=== PATIENT | female | born 1975 | race Caucasian/White ===

== ENCOUNTER 2016-05-26 20:11 | Emergency (ER) | payer OTHER ==
[~2016-05-26] VITALS: Ht 172.7 cm; Wt 110.2 kg
[~2016-05-26 20:11] MED LIST: ALBUTEROL0.09 MG/AC INH; CATAPRES-TTS 10.1 MG PO; CITALOPRAM10 MG PO; COREG25 MG PO; DOXYCYCLINE100 MG PO; HYDROCODONE BIT1 T11 PO; LASIX20 MG PO; MOBIC15 MG PO; MOTRIN800 MG PO; MUCINEX600 MG PO; NAPROSYN500 MG PO; NORETHINDRONE AC5 MG PO; NORFLEX100 MG PO; OXYBUTYNIN CHLOR5 M1 PO; PREDNISONE20 MG PO; SINGULAIR10 M1 PO; TESSALON PERLE200 MG PO; VICODIN ES 7501 TAB PO; VICTOZA; VITAMIN D50000 I3 PO; ZOFRAN4 MG PO; ZYRTEC10 MG PO
[2016-05-26] MEDS ORDERED: COZAAR100 MG PO (20:21)
[2016-05-26] MEDS ORDERED: CLARITIN10 MG PO (20:22)
[2016-05-26] MEDS ORDERED: VITAMIN D22000 UNIT PO (20:24)
[2016-05-26] MEDS ORDERED: FEMARA2.5 MG PO (20:25)
[2016-05-26] MEDS ORDERED: HUMALOG100 UNIT/1 SQ (20:26)
[2016-05-26 20:58] LABS: VENOUS PH 7.397 (7.32-7.43)
[2016-05-26 21:12] LABS: BUN 12 mg/dl (7-24); CARBON DIOXIDE 24 mmol/L (21-32); CHLORIDE 102 mmol/L (98-107); EST GLOM FILT AFRICAN AMERICAN > 60 ml/min; GLUCOSE 151 mg/dL (65-99); POTASSIUM 3.5 mmol/L (3.5-5.1); SODIUM 138 mmol/L (136-145)
[2016-05-26 21:29] LABS: BILIRUBIN NEGATIVE (NEGATIVE); BLOOD 1+ (NEGATIVE); CLARITY CLEAR (CLEAR); COLOR YELLOW (YELLOW); GLUCOSE NEGATIVE (NEGATIVE); KETONE TRACE (NEGATIVE); LEUKO ESTERASE NEGATIVE (NEGATIVE); NITRITE NEGATIVE (NEGATIVE); PH 5.5 (5.0-9.0); PROTEIN NEGATIVE (NEGATIVE); SPECIFIC GRAVITY 1.025 (1.005-1.030); UROBILINOGEN 0.2 E.U./dl (0.2-1.0)
[2016-05-26 21:38] LABS: URINE REFLEX COMMENT YES (NO)
[2016-07-31] MEDS ORDERED: CYCLOBENZAPRINE10 MG PO (10:29)
[2016-07-31] MEDS ORDERED: NAPROSYN500 MG PO (10:29)
== END 2016-05-26 21:55 | disposition home or self-care (01) ==
LOC: ED 20:11
PROVIDERS: Emergency Medicine
DX: E11.65 Type 2 diabetes mellitus with hyperglycemia (principal); Z79.4 Long term (current) use of insulin; Z90.49 Acquired absence of other specified parts of digestive tract; Z88.6 Allergy status to analgesic agent; Z88.8 Allergy status to other drugs, medicaments and biological substances

== ENCOUNTER 2016-08-18 16:11 | Emergency (ER) | payer OTHER ==
[~2016-08-18] VITALS: Wt 108.9 kg
[~2016-08-18 16:11] MED LIST changes: +CLARITIN10 MG PO; +COZAAR100 MG PO; +CYCLOBENZAPRINE10 MG PO; +FEMARA2.5 MG PO; +HUMALOG100 UNIT/1 SQ; +VITAMIN D22000 UNIT PO
[2016-08-18] MEDS ORDERED: METOPROLOL SUCC50 M2 PO (16:14)
[2016-08-18] MEDS ORDERED: MEDROL DOSEPAK4 MG PO (18:25)
[2016-08-18] MEDS ORDERED: ULTRAM50 MG PO (18:25)
== END 2016-08-18 18:29 | disposition home or self-care (01) ==
LOC: ED 16:11
DX: G89.29 Other chronic pain (principal); M54.5 Low back pain; Z90.710 Acquired absence of both cervix and uterus; Z98.890 Other specified postprocedural states; Z79.899 Other long term (current) drug therapy; Z88.5 Allergy status to narcotic agent; Z88.8 Allergy status to other drugs, medicaments and biological substances

== ENCOUNTER → 2016-08-22 | Outpatient (CLI) | payer OTHER ==
[~2016-08-22] MED LIST changes: +MEDROL DOSEPAK4 MG PO; +METOPROLOL SUCC50 M2 PO; +ULTRAM50 MG PO
== END | disposition home or self-care (01) ==
LOC: LAB 12:48
DX: R53.83 Other fatigue (principal)

== ENCOUNTER → 2016-08-24 | Outpatient (CLI) | payer OTHER | END | disposition home or self-care (01) | LOC: MRI 08-16 09:00 | DX: R20.2 Paresthesia of skin (principal) ==

== ENCOUNTER 2016-09-22 21:20 | Emergency (ER) | payer OTHER ==
[2016-09-22] MEDS ORDERED: NEURONTIN300 MG PO (21:35)
[2016-09-22] MEDS ORDERED: CYMBALTA30 MG PO (21:35)
[2016-09-22 22:16] LABS: BASO % 0.1 % (0.0-1.0); HEMATOCRIT 40.5 % (37.0-47.0); HEMOGLOBIN 13.9 g/dl (12.0-16.0); IG # 0.1 10*3/uL (0.0-0.1); LYMPH # 1.6 10*3/uL (1.3-4.4); LYMPH % 10.4 % (27.0-41.0); MEAN CELL VOLUME 87.3 fl (81.0-99.0); MEAN CORPUSCULAR HGB CONC 34.3 g/dl (33.0-37.0); MEAN PLATELET VOLUME 10.2 fl (9.6-12.3); MONO # 0.4 10*3/uL (0.1-1.0); MONO % 2.8 % (3.0-9.0); NEUT # 13.1 10*3/uL (2.3-7.9); PLATELET COUNT AUTOMATED 323 10*3/uL (130-400); RED BLOOD COUNT 4.64 10*6/uL (4.10-5.10); RED CELL DISTRI WIDTH 13.1 % (0-14.5); WHITE BLOOD COUNT 15.2 10*3/uL (4.8-10.8)
[2016-09-22 22:30] LABS: BILIRUBIN NEGATIVE (NEGATIVE); BLOOD TRACE-INTACT (NEGATIVE); CLARITY CLEAR (CLEAR); COLOR YELLOW (YELLOW); GLUCOSE 3+ (NEGATIVE); KETONE NEGATIVE (NEGATIVE); LEUKO ESTERASE NEGATIVE (NEGATIVE); NITRITE NEGATIVE (NEGATIVE); PH 5.5 (5.0-9.0); PROTEIN NEGATIVE (NEGATIVE); SPECIFIC GRAVITY <= 1.005 (1.005-1.030); UROBILINOGEN 0.2 E.U./dl (0.2-1.0)
[2016-09-22 22:32] LABS: ALBUMIN 3.8 gm/dl (3.1-4.5); BILIRUBIN, TOTAL 0.8 mg/dl (0.2-1.0); BUN 10 mg/dl (7-24); CARBON DIOXIDE 22 mmol/L (21-32); CHLORIDE 100 mmol/L (98-107); EST GLOM FILT AFRICAN AMERICAN > 60 ml/min; GLUCOSE 357 mg/dL (65-99); POTASSIUM 4.6 mmol/L (3.5-5.1); SGOT/AST 25 IU/L (3-35); SGPT/ALT 32 U/L (12-78); SODIUM 133 mmol/L (136-145); TOTAL PROTEIN 8.2 gm/dL (6.4-8.2)
[2016-09-22 22:33] LABS: ALKALINE PHOSPHATASE 96 U/L (45-117)
[2016-09-22 22:58] LABS: BACTERIA TRACE; URINE REFLEX COMMENT NO (NO); WBC 0-2 wbc/hpf (0-5)
== END 2016-09-23 00:29 | disposition home or self-care (01) ==
LOC: ED 21:20
PROVIDERS: Nurse Practitioner Family
DX: R73.9 Hyperglycemia, unspecified (principal); Z88.6 Allergy status to analgesic agent; Z88.8 Allergy status to other drugs, medicaments and biological substances; Z79.899 Other long term (current) drug therapy

== ENCOUNTER 2016-12-19 05:59 | Inpatient (IN) | payer OTHER ==
[2016-12-19] VITALS (8 sets, daily range): BP systolic 91–145; BP diastolic 55–87
[~2016-12-19] VITALS: Ht 175 cm; Wt 132.1 kg
--- NOTE | ~2016-12-19 | WRIGHTHP ---
[place], [place] PATIENT HISTORY AND PHYSICAL EXAM [id number] UNIT #: [id number] ROOM: 519 DOCTOR: BRIANDA ARAUZ MD BIRTHDATE: [birth year] DOS: 12/19/2016 HISTORY OF PRESENT ILLNESS: The patient is very well known to us, 41 years old, was awoken this morning with complaints of chest pain, mostly in the left side of the chest radiating to the jaw and neck. She also has some radiation in the left arm. She does not have any shortness of breath, does not have any fever or chills, does not have any abdominal pain, nausea, any emesis. PAST MEDICAL HISTORY: 1. Angiomyxoma of the pelvis for which she follows up with [facility]. 2. Type 2 diabetes mellitus, insulin-dependent. 3. Benign hypertension. 4. Fibromyalgia with chronic pain. 5. Obstructive sleep apnea. 6. Major depression, mild, recurrent. MEDICATIONS: She is on citalopram, Symbolia, La, gabapentin, metoprolol, oxybutynin, Singulair, Spiriva, Lantus and Humalog. SOCIAL HISTORY: Does not smoke, does not use any alcohol. Lives at home with her . PHYSICAL EXAMINATION: GENERAL: The patient is awake and alert and oriented. VITAL SIGNS: Her weight is 270. Blood pressure is 120/70, pulse of 86, respirations 16, afebrile. HEAD AND NECK: Within normal limits. LUNGS: Diminished breath sounds, clear. HEART: Regular. ABDOMEN: Obese, soft, nontender. EXTREMITIES: Without any edema. ASSESSMENT AND PLAN: 1. Precordial chest pain. The patient does have significant risk factors having hypertension and diabetes. The patient will be admitted. Rule out PA protocol will be ordered. Cardiology consultations obtained and the patient to have a stress test tomorrow morning. Lovenox and nitrates will be started. 2. Benign hypertension, controlled. Echocardiogram is ordered. 3. Type 2 diabetes mellitus. Blood sugars to be checked twice daily, ADA diet and coverage has been ordered. [place], [place] PATIENT HISTORY AND PHYSICAL EXAM NAME: ELIUD CHRISTOPHER UNIT #: [id number] ROOM: 519 DOCTOR: BRIANDA ARAUZ MD BIRTHDATE: [birth year] BRIANDA ARAUZ MD CM:HISPHYS:PATIENT HISTORY AND PHYSICAL EXAMINATION 1303 1336 BRIANDA ARAUZ MD 12/19/16 1337 interface
--- NOTE | ~2016-12-19 | PR ---
[place], [place] PROGRESS NOTE NAME: ELIUD CHRISTOPHER [facility] #: [id number] UNIT #: [id number] ROOM: 519 DOCTOR: BRIANDA ARAUZ MD BIRTHDATE: [birth year] DOS: 12/20/2016 SUBJECTIVE: The patient is not having any new complaints. She had a pretty bad headache during the night, possibly from the nitrates and had a pretty large emesis. Toradol and Zofran was given, and this morning, she is not having any more headaches. PHYSICAL EXAMINATION: VITAL SIGNS: Graphic trend shows a pressure of 116/65, pulse of 86, respirations 20, temperature 98.4. LUNGS: Clear. HEART: Regular. ABDOMEN: Obese. EXTREMITIES: Without any edema. LABORATORY DATA: All the 3 troponins that were done came back negative. Blood sugar this morning was 143. ASSESSMENT AND PLAN: 1. Precordial chest pain. The patient had a rule out myocardial infarction protocol, which was negative. Nitrates, Lovenox were given. The nitrates were discontinued because of severe headache. Stress test was performed today, and if that looks good, the patient should be able to go home. 2. Right lower lobe atelectasis noted without any pleural effusion. We will repeat a chest x-ray this morning to make sure this area has expanded. 3. Type 2 diabetes mellitus, insulin-dependent, controlled. BRIANDA ARAUZ MD CM:PNTRANS [id number] BRIANDA ARAUZ MD 12/21/16 0230 interface
--- NOTE | ~2016-12-19 | ST ---
[place], [place] EXERCISE STRESS TEST REPORT [id number] #: [id number] ROOM: [facility] DOCTOR: BRIANDA ARAUZ MD BIRTHDATE: [birth year] DOS: REASON FOR TESTING: Evaluation of chest pain. PROCEDURE: After explaining the procedure and obtaining consent, the patient was subjected to Lexiscan stress test. Resting heart rate was 81 with a blood pressure 124/70. EKG showed sinus with normal axis, nonspecific ST. The patient was injected with 0.4 mg of Lexiscan. During the infusion, the patient did not have any complaints other than a warm feeling. There was no chest pain or shortness of breath or any other EKG changes noted during the infusion. After the infusion was over, she was injected with Cardiolite and stress images were taken. ASSESSMENT AND PLAN: Lexiscan stress test without any ST-T wave changes. Cardiolite images pending. BRIANDA ARAUZ MD CM:STRESS:EXERCISE STRESS TEST REPORT [id number] BRIANDA ARAUZ MD
--- NOTE | ~2016-12-19 | EKG ---
[place], [place] ELECTROCARDIOGRAM REPORT NAME: ELIUD CHRISTOPHER UNIT #: [id number] ROOM: [facility] DOCTOR: SHAMIR DUNLAP MD BIRTHDATE: [birth year] DOS: 12/19/2016 TIME: 6:09:30 Normal sinus rhythm, left axis deviation, nonspecific ST-T changes. SHAMIR DUNLAP MD CM:EKGRPT:ELECTROCARDIOGRAM REPORT [id number] SHAMIR DUNLAP MD
[~2016-12-19 05:59] MED LIST changes: +CYMBALTA30 MG PO; +NEURONTIN300 MG PO
[2016-12-19 06:19] LABS: BASO % 0.3 % (0.0-1.0); EOS # 0.3 10*3/uL (0.0-0.4); EOS % 2.5 % (1.0-4.0); HEMATOCRIT 39.7 % (37.0-47.0); HEMOGLOBIN 13.7 g/dl (12.0-16.0); LYMPH % 38.1 % (27.0-41.0); MEAN CELL VOLUME 86.5 fl (81.0-99.0); MEAN CORPUSCULAR HGB 29.8 pg (27.0-31.0); MEAN CORPUSCULAR HGB CONC 34.5 g/dl (33.0-37.0); MEAN PLATELET VOLUME 9.9 fl (9.6-12.3); MONO # 0.7 10*3/uL (0.1-1.0); NEUT # 5.4 10*3/uL (2.3-7.9); NEUT % 51.8 % (47.0-73.0); PLATELET COUNT AUTOMATED 231 10*3/uL (130-400); RED BLOOD COUNT 4.59 10*6/uL (4.10-5.10); RED CELL DISTRI WIDTH 12.2 % (0-14.5); WHITE BLOOD COUNT 10.5 10*3/uL (4.8-10.8)
[2016-12-19 06:34] LABS: PROTHROMBIN TIME 10.7 SECONDS (9.0-12.4)
[2016-12-19 06:37] LABS: ALBUMIN 3.5 gm/dl (3.1-4.5); ALKALINE PHOSPHATASE 94 U/L (45-117); BILIRUBIN, TOTAL 1.1 mg/dl (0.2-1.0); BUN 11 mg/dl (7-24); CARBON DIOXIDE 25 mmol/L (21-32); CHLORIDE 103 mmol/L (98-107); EST GLOM FILT AFRICAN AMERICAN > 60 ml/min; GLUCOSE 167 mg/dL (65-99); MAGNESIUM 1.9 mg/dL (1.5-2.1); POTASSIUM 3.9 mmol/L (3.5-5.1); SGOT/AST 21 IU/L (3-35); SGPT/ALT 32 U/L (12-78); SODIUM 138 mmol/L (136-145); TOTAL PROTEIN 7.1 gm/dL (6.4-8.2)
[2016-12-19 06:40] LABS: TROPONIN I < 0.015 ng/ml (<0.045)
[2016-12-19] MEDS ORDERED: MULTI-DAY VITA1 EACH PO (09:32)
[2016-12-19] MEDS ORDERED: CALCIUM 600600 M2 PO (09:34)
[2016-12-19] MEDS ORDERED: LOPRESSOR25 MG PO (09:35)
[2016-12-19] MEDS ORDERED: REQUIP0.5 MG PO (09:38)
[2016-12-19] MEDS ORDERED: VITAMIN D50000 I3 PO (09:56)
[2016-12-19] MEDS ORDERED: BASAGLAR K100 UNIT/1 SQ (10:19)
[2016-12-20] VITALS: BP 116/65
[2016-12-20 08:00] VITALS: BP 145/88
[2016-12-20 12:00] VITALS: BP 115/70
[2016-12-20 16:00] VITALS: BP 124/89
[2016-12-20 20:00] VITALS: BP 115/74
[2016-12-21] VITALS: BP 115/69
== END 2016-12-21 05:15 | disposition other institution (70) | DRG 313 ==
LOC: ED 05:59 → 5E 08:04 → EDHOLD 08:04 → 5E 08:14
PROVIDERS: Emergency Medicine Emergency Medical Services
PROC: 4A02XM4 Measurement of Cardiac Total Activity, External Approach (ICD-10-PCS; principal; 2016-12-20)
PROC: 3E073KZ Introduction of Other Diagnostic Substance into Coronary Artery, Percutaneous Approach (ICD-10-PCS; 2016-12-20)
DX: R07.2 Precordial pain (principal); I10 Essential (primary) hypertension; J98.11 Atelectasis; E11.9 Type 2 diabetes mellitus without complications; Z79.4 Long term (current) use of insulin; G89.29 Other chronic pain; K21.9 Gastro-esophageal reflux disease without esophagitis; M79.7 Fibromyalgia; G47.33 Obstructive sleep apnea (adult) (pediatric); F32.9 Major depressive disorder, single episode, unspecified; Z79.899 Other long term (current) drug therapy

== ENCOUNTER → 2017-01-25 | Outpatient (CLI) | payer OTHER ==
[~2017-01-25] MED LIST changes: +BASAGLAR K100 UNIT/1 SQ; +CALCIUM 600600 M2 PO; +LOPRESSOR25 MG PO; +MULTI-DAY VITA1 EACH PO; +REQUIP0.5 MG PO
== END | disposition home or self-care (01) ==
LOC: CARD 09:15
DX: R07.9 Chest pain, unspecified (principal); R00.2 Palpitations

== ENCOUNTER → 2017-08-01 | Outpatient (CLI) | payer OTHER | END | disposition home or self-care (01) | LOC: RAD 16:19 | DX: M25.531 Pain in right wrist (principal) ==

== ENCOUNTER 2017-08-09 20:33 | Emergency (ER) | payer OTHER ==
[~2017-08-09] VITALS: Ht 172.7 cm; Wt 135.2 kg
== END 2017-08-09 21:37 | disposition home or self-care (01) ==
LOC: ED 20:33
DX: S66.811A Strain of other specified muscles, fascia and tendons at wrist and hand level, right hand, initial encounter (principal); Z88.6 Allergy status to analgesic agent; Z88.8 Allergy status to other drugs, medicaments and biological substances; Z79.4 Long term (current) use of insulin; Z79.899 Other long term (current) drug therapy; X58.XXXA Exposure to other specified factors, initial encounter; Y93.89 Activity, other specified; Y92.89 Other specified places as the place of occurrence of the external cause; Y99.8 Other external cause status

== ENCOUNTER → 2018-03-25 | Outpatient (CLI) | payer OTHER ==
[2018-03-25 09:31] LABS: BASO % 0.3 % (0.0-1.0); EOS # 0.3 10*3/uL (0.0-0.4); EOS % 4.8 % (1.0-4.0); HEMATOCRIT 40.8 % (37.0-47.0); HEMOGLOBIN 13.5 g/dl (12.0-16.0); LYMPH % 28.2 % (27.0-41.0); MEAN CELL VOLUME 89.5 fl (81.0-99.0); MEAN CORPUSCULAR HGB 29.6 pg (27.0-31.0); MEAN CORPUSCULAR HGB CONC 33.1 g/dl (33.0-37.0); MEAN PLATELET VOLUME 11.1 fl (9.6-12.3); MONO # 0.5 10*3/uL (0.1-1.0); MONO % 6.8 % (3.0-9.0); NEUT # 4.1 10*3/uL (2.3-7.9); NEUT % 59.8 % (47.0-73.0); PLATELET COUNT AUTOMATED 216 10*3/uL (130-400); RED BLOOD COUNT 4.56 10*6/uL (4.10-5.10); RED CELL DISTRI WIDTH 13.2 % (0-14.5); WHITE BLOOD COUNT 6.9 10*3/uL (4.8-10.8)
[2018-03-25 09:44] LABS: ALBUMIN 3.6 gm/dl (3.1-4.5); BUN 10 mg/dl (7-24); CHLORIDE 106 mmol/L (98-107); CHOLESTEROL 110 mg/dL (<200); POTASSIUM 3.4 mmol/L (3.5-5.1); SGOT/AST 25 IU/L (3-35); SGPT/ALT 28 U/L (12-78); SODIUM 140 mmol/L (136-145); TOTAL PROTEIN 6.9 gm/dL (6.4-8.2); TRIGLYCERIDES 134 mg/dl (<150)
[2018-03-25 09:45] LABS: ALKALINE PHOSPHATASE 110 U/L (45-117); PREALBUMIN 15 mg/dl (20-40)
[2018-03-25 10:57] LABS: FERRITIN 75.8 ng/mL (10.0-291.0); VITAMIN D, 25-HYDROXY 60.4 ng/mL (30-100)
== END | disposition home or self-care (01) ==
LOC: LAB 08:46
PROVIDERS: Surgery
DX: K91.2 Postsurgical malabsorption, not elsewhere classified (principal)

== ENCOUNTER 2018-07-18 17:14 | Emergency (ER) | payer OTHER ==
[~2018-07-18] VITALS: Ht 170.1 cm; Wt 91.6 kg
[2018-07-18 17:54] LABS: BASO % 0.2 % (0.0-1.0); EOS # 0.3 10*3/uL (0.0-0.4); EOS % 3.9 % (1.0-4.0); HEMATOCRIT 38.6 % (37.0-47.0); HEMOGLOBIN 12.9 g/dl (12.0-16.0); LYMPH % 34.9 % (27.0-41.0); MEAN CELL VOLUME 89.8 fl (81.0-99.0); MEAN CORPUSCULAR HGB CONC 33.4 g/dl (33.0-37.0); MEAN PLATELET VOLUME 10.5 fl (9.6-12.3); MONO # 0.6 10*3/uL (0.1-1.0); MONO % 6.6 % (3.0-9.0); NEUT # 4.6 10*3/uL (2.3-7.9); NEUT % 54.3 % (47.0-73.0); PLATELET COUNT AUTOMATED 235 10*3/uL (130-400); RED CELL DISTRI WIDTH 13.2 % (0-14.5); WHITE BLOOD COUNT 8.5 10*3/uL (4.8-10.8)
[2018-07-18 18:21] LABS: ALBUMIN 3.5 gm/dl (3.1-4.5); ALKALINE PHOSPHATASE 133 U/L (45-117); BUN 14 mg/dl (7-24); CHLORIDE 104 mmol/L (98-107); CREATININE 0.65 mg/dL (0.55-1.02); POTASSIUM 3.9 mmol/L (3.5-5.1); SGOT/AST 15 IU/L (3-35); SGPT/ALT 18 U/L (12-78); SODIUM 139 mmol/L (136-145); TOTAL PROTEIN 7.1 gm/dL (6.4-8.2)
[2018-07-18] MEDS ORDERED: TAMIFLU 75MG CA75 MG PO (19:29)
[2018-08-22] MEDS ORDERED: FEROSUL325 MG PO (20:01)
[2018-08-22] MEDS ORDERED: LEVAQUIN750 M1 PO (21:17)
[2018-08-22] MEDS ORDERED: PROAIR HFA8.5 GM INH (21:17)
== END 2018-07-18 19:36 | disposition home or self-care (01) ==
LOC: ED 17:14
PROVIDERS: Nurse Practitioner Family
DX: R11.2 Nausea with vomiting, unspecified (principal); R19.7 Diarrhea, unspecified; J02.9 Acute pharyngitis, unspecified; M79.7 Fibromyalgia; Z90.710 Acquired absence of both cervix and uterus; Z98.890 Other specified postprocedural states; Z98.84 Bariatric surgery status; Z79.899 Other long term (current) drug therapy; Z79.4 Long term (current) use of insulin; Z88.5 Allergy status to narcotic agent; Z88.8 Allergy status to other drugs, medicaments and biological substances

== ENCOUNTER → 2018-08-13 | Outpatient (CLI) | payer OTHER ==
[~2018-08-13] MED LIST changes: +FEROSUL325 MG PO; +LEVAQUIN750 M1 PO; +PROAIR HFA8.5 GM INH; +TAMIFLU 75MG CA75 MG PO
[2018-08-13 09:46] LABS: BASO % 0.1 % (0.0-1.0); EOS # 0.3 10*3/uL (0.0-0.4); HEMATOCRIT 41.7 % (37.0-47.0); HEMOGLOBIN 13.5 g/dl (12.0-16.0); LYMPH # 2.5 10*3/uL (1.3-4.4); LYMPH % 30.3 % (27.0-41.0); MEAN CELL VOLUME 89.3 fl (81.0-99.0); MEAN CORPUSCULAR HGB 28.9 pg (27.0-31.0); MEAN CORPUSCULAR HGB CONC 32.4 g/dl (33.0-37.0); MEAN PLATELET VOLUME 9.9 fl (9.6-12.3); MONO # 0.6 10*3/uL (0.1-1.0); NEUT # 4.9 10*3/uL (2.3-7.9); NEUT % 59.4 % (47.0-73.0); PLATELET COUNT AUTOMATED 264 10*3/uL (130-400); RED BLOOD COUNT 4.67 10*6/uL (4.10-5.10); RED CELL DISTRI WIDTH 12.7 % (0-14.5); WHITE BLOOD COUNT 8.3 10*3/uL (4.8-10.8)
[2018-08-13 10:10] LABS: ALBUMIN 3.7 gm/dl (3.1-4.5); ALKALINE PHOSPHATASE 159 U/L (45-117); BUN 9 mg/dl (7-24); CHLORIDE 105 mmol/L (98-107); CHOLESTEROL 125 mg/dL (<200); CREATININE 0.68 mg/dL (0.55-1.02); POTASSIUM 3.8 mmol/L (3.5-5.1); PREALBUMIN 18 mg/dl (20-40); SGOT/AST 15 IU/L (3-35); SGPT/ALT 18 U/L (12-78); SODIUM 140 mmol/L (136-145); TOTAL PROTEIN 7.7 gm/dL (6.4-8.2); TRIGLYCERIDES 105 mg/dl (<150)
[2018-08-13 11:00] LABS: VITAMIN D, 25-HYDROXY 31.7 ng/mL (30-100)
[2018-08-13 11:01] LABS: FERRITIN 95.4 ng/mL (10.0-291.0)
== END | disposition home or self-care (01) ==
LOC: LAB 09:19
PROVIDERS: Surgery
DX: K91.2 Postsurgical malabsorption, not elsewhere classified (principal)

== ENCOUNTER → 2018-08-29 | Outpatient (CLI) | payer OTHER | END | disposition home or self-care (01) | LOC: RAD 09:55 | DX: R06.02 Shortness of breath (principal) ==

== ENCOUNTER → 2018-11-06 | Outpatient (CLI) | payer OTHER | END | disposition home or self-care (01) | LOC: LAB 13:26 | DX: E53.8 Deficiency of other specified B group vitamins (principal) ==

== ENCOUNTER 2019-01-30 13:13 | Inpatient (IN) | payer OTHER ==
[~2019-01-30] VITALS: Ht 170.2 cm; Wt 92.5 kg
--- NOTE | ~2019-01-30 | WRIGHTHP ---
[place], [place] PATIENT HISTORY AND PHYSICAL EXAM NAME: ELIUD CHRISTOPHER [facility] #: [id number] UNIT #: [id number] ROOM: 518 DOCTOR: SHANI SHELTON MD BIRTHDATE: [birth year] DOS: 01/30/2019 HISTORY OF PRESENT ILLNESS: The patient is a 43-year-old female with complaints of dizziness and vertigo for about 2 months now. The patient was seen in the Emergency Department and was found to have orthostatic hypotension and she was recommended for admission and further management. The patient has been staggering and has had difficulty with walking. The patient says she has had cholecystectomy in remote past, and since then, she has had diarrhea about 6 times a day chronically, and this has not been addressed. The patient is also giving a history of bariatric surgery and 100-pound weight loss after which she was taken off her 3 blood pressure medications. No chest pain, no shortness of breath, no other GI or urinary symptoms. REVIEW OF SYSTEMS: GASTROINTESTINAL: Chronic diarrhea. RESPIRATORY: No increasing shortness of breath. CARDIOVASCULAR: No chest pains or palpitations. FAMILY HISTORY: Noncontributory. ALLERGIES: Known allergies to MORPHINE, CODEINE, METFORMIN, AND JANUVIA. PHYSICAL EXAMINATION: GENERAL APPEARANCE: Alert, oriented x 3, in no visible distress. Obesity with BMI of 31.9. HEENT AND NECK: Extraocular movements are intact. Sclerae are anicteric. Oral mucosa is moist and clean. No obvious facial weakness. Neck is supple without any lymphadenopathy. No thyromegaly. No JVD. No carotid arterial bruits. LUNGS: Clear to auscultation. No wheezing. No rhonchi. CARDIOVASCULAR SYSTEM: Heart rate is regular in rate and rhythm. S1 and S2 normally audible. No significant murmur or any other abnormal cardiac sounds. ABDOMEN: Soft, nontender. No obvious organomegaly. Bowel sounds are present. No obvious herniation. EXTREMITIES: Without significant cyanosis or edema. Warm to touch. CENTRAL NERVOUS SYSTEM: Alert and oriented x 3. Cranial nerves II-XII are intact. Speech is normal. The patient is able to move all extremities. Normal muscle strength. Deep tendon reflexes are equal on both sides. Plantars were downgoing. IMPRESSION AND PLAN: 1. The patient with hypovolemia, dizziness, vertigo, and postural hypotension related to chronic diarrhea and hypovolemia to be treated with cholestyramine to reduce her diarrhea and also give her hydration and normal saline. I personally feel that if her diarrhea improves, her fluid volume will also improve and her orthostatic hypotension should resolve and that her chronic diarrhea is related to her cholecystectomy in remote past because since then that is when her diarrhea started. 2. Migraine type headaches, recently well controlled with Topamax started in [place], [place] PATIENT HISTORY AND PHYSICAL EXAM NAME: ELIUD CHRISTOPHER UNIT #: [id number] ROOM: 8 DOCTOR: CAT DAILY,SHANI Herndon BIRTHDATE: [birth year] the last 1 week. 3. Restless legs syndrome, treated and controlled with ropinirole. 4. Obesity with a BMI of 31.9. The patient has lost significant amount of await with bariatric surgery, more than 100 pounds. 5. History of benign essential hypertension, diet-controlled now and controlled with weight loss. 6. Major depression, recurrent, mild, treated and controlled with citalopram. SHANI SHELTON MD CM:HISPHYS:PATIENT HISTORY AND PHYSICAL EXAMINATION 48 43 SHANI SHELTON MD 01/30/192041 interface
--- NOTE | ~2019-01-30 | PR ---
[place], [place] PROGRESS NOTE NAME: ELIUD CHRISTOPHER UNIT #: [id number] ROOM: 518 DOCTOR: FERMIN HOBSON BIRTHDATE: [birth year] DOS: 01/31/2019 CARDIOLOGY PROGRESS NOTE The patient is being seen in followup for orthostatic hypotension. SUBJECTIVE: The patient is feeling better today. Much less dizziness. She has been on IV fluids overnight. No chest pain or shortness of breath. Telemetry showed sinus rhythm with no evidence of arrhythmias. OBJECTIVE: VITAL SIGNS: Afebrile, pulse 60, respirations 18, blood pressure 107/62, saturating 99% on room air. GENERAL APPEARANCE: Middle-aged female, lying in bed, in no distress. NECK: Supple. JVP is normal. There were no carotid bruits. RESPIRATORY: Lungs are clear. CARDIOVASCULAR: Regular rhythm with normal rate. There are no murmurs. ABDOMEN: Positive bowel sounds. Soft, nontender. EXTREMITIES: Warm, well perfused. There is no edema. LABORATORY DATA: Hemoglobin 12.3, platelets 255. Potassium 3.9, BUN 15, creatinine 0.56. All three troponins were negative. CURRENT CARDIAC MEDICATIONS: Include none. She is on IV fluids, normal saline 60 mL per hour and her home dose of topiramate and ropinirole and Celexa. IMPRESSION: 1. Orthostatic hypotension, likely large part due to hypovolemia and dehydration because of she has constant frequent diarrhea. Could also likely be medication related from her psychiatric medications. 2. Dizziness. Likely has some component of vertigo. 3. History of coronary vasospasm, no evidence of acute coronary syndrome. 4. History of gastric bypass. 5. Diabetes, hypertension, which both resolved after bypass surgery. RECOMMENDATIONS: 1. Agree with gentle IV fluid hydration, she seems to be improving. 2. Discussed mechanisms of orthostatic hypotension related to hypovolemia, and recommended that she stay well hydrated and increased her sodium intake, discussed counterpressure maneuvers compression stockings. 3. Dr. Rosas plans to give her medicine to hopefully decrease her diarrhea, which should decrease hypovolemia. 4. She can follow up with Dr. Velasquez in the office. [place], [place] PROGRESS NOTE NAME: ELIUD CHRISTOPHER UNIT #: [id number] ROOM: 8 DOCTOR: FERMIN HOBSON BIRTHDATE: [birth year] Dr. FERMIN HOBSON MD CM:PNTRANS 1430 FERMIN HOBSON 02/01/19 0010 interface
--- NOTE | ~2019-01-30 | PR ---
[place], [place] PROGRESS NOTE NAME: ELIUD CHRISTOPHER UNIT #: [id number] ROOM: 518 DOCTOR: MALDONADO ALFARO MD BIRTHDATE: [birth year] DOS: 02/04/2019 REASON FOR VISIT: Dizziness and orthostatic hypotension and also coronary vasospasm. SUBJECTIVE: The patient is feeling somewhat better, still complaining of some dizziness. She was started on IV fluids yesterday per Dr. Nelson. Denies any chest pain or palpitation. No PND, no orthopnea. No nausea, vomiting, or diarrhea. REVIEW OF SYSTEMS: Review of 8 systems negative except as mentioned above. PHYSICAL EXAMINATION: VITAL SIGNS: Blood pressure 108/63, pulse 57, respiratory rate 18, weight 92.5 kg, BMI 32. RHYTHM STRIPS: The patient in sinus rhythm. GENERAL: Alert, comfortable, in no acute distress. NECK: Supple, no distended neck veins, no carotid bruit. CHEST: Nontender. LUNGS: Clear to auscultation bilaterally. HEART: Regular rhythm, no S3, no palpable thrills. ABDOMEN: Nontender. Bowel sounds normal. EXTREMITIES: Showed no edema. Distal pulses palpable. SKIN: Warm and dry. No cyanosis, no clubbing. NEUROLOGIC: Alert with no focal neurologic deficit. MEDICATIONS AND LABORATORY DATA: Reviewed. IMPRESSION: 1. Dizziness due to orthostatic hypotension. 2. History of coronary vasospasm. 3. Restless leg syndrome. 4. History of morbid obesity, status post gastric bypass. 5. History of depression. RECOMMENDATIONS: 1. Continue IV fluids. 2. We will increase her Florinef to 0.2 mg twice a day. 3. Possible discharge tomorrow morning if blood pressure and heart rates are stable. 4. The patient advised to avoid excessive caffeine, also avoid dehydration and drink plenty of fluids and also increase her salt intake. The patient advised to avoid any abrupt change in her position and also use supportive stockings. [place], [place] PROGRESS NOTE NAME: ELIUD CHRISTOPHER UNIT #: [id number] ROOM: 518 DOCTOR: MALDONADO ALFARO MD BIRTHDATE: [birth year] MALDONADO ALFARO MD CM:LEILANI 18 8 MALDONADO ALFARO MD 02/05/197 interface
--- NOTE | ~2019-01-30 | DS ---
[place], [place] DISCHARGE SUMMARY NAME: ELIUD CHRISTOPHER UNIT #: [id number] ROOM: 518 DOCTOR: BRIANDA ARAUZ MD BIRTHDATE: [birth year] DOS: 02/01/2019 DIAGNOSES: 1. Orthostatic hypotension with dizziness, resolved. 2. Chronic diarrhea with postcholecystectomy syndrome. 3. Migraine headaches. 4. Bariatric surgery status post morbid obesity, 100-pound weight loss. 5. Diet controlled diabetes mellitus. 6. Allergic rhinitis. 7. Restless legs. 8. Major depression, mild, recurrent. DISCHARGE MEDICATIONS: Will be Questran 4 grams powder, 239 grams, twice a day; Flonase allergy sprays, one spray each nostril daily; multivitamin 1 tablet daily; calcium carbonate 600 t.i.d.; Requip 0.5 daily; Celexa 40 daily; vitamin D 10,000 units daily. HOSPITAL COURSE: The patient is 43-year-old. The patient comes in with complaints of dizziness, lightheadedness. She was found to be hypotensive and was admitted. Please refer to H and P dictated by Dr. Nelson as well as notes by Dr. Tracy for further details. She was admitted, was placed on IV fluids. Her labs were all within normal limits on admission. She did not have any evidence of any acute kidney injury. She has significant diarrhea following cholecystectomy and it is considered that she became hypovolemic with resultant hypotension and dizziness. With Questran, her diarrhea has slowed down. Topamax has been discontinued, which is a new medicine, may have contributed to the hypotension. The patient is stable this morning, is not having any new problems other than some nasal congestion and drainage for which Flonase has been ordered. This morning's labs are not available yet. There are still pending. If they look normal, the plan is to discharge her to home today to be followed up as an outpatient. [place], [place] DISCHARGE SUMMARY NAME: ELIUD CHRISTOPHER UNIT #: [id number] ROOM: 518 DOCTOR: BRIANDA ARAUZ MD BIRTHDATE: [birth year] BRIANDA ARAUZ MD CM:BALWINDER 0728 0739 BRIANDA ARAUZ MD 02/01/19 0738 interface
--- NOTE | ~2019-01-30 | EKG ---
[place], [place] ELECTROCARDIOGRAM REPORT NAME: ELIUD CHRISTOPHER UNIT #: [id number] ROOM: 518 DOCTOR: HENRY DRAFT REPORT BIRTHDATE: [birth year] [facility] Test Date: 2019-01-30 Test Time: 19:31:36 Pat Name: ELIUD CHRISTOPHER Department: Room: 518 Gender: F Physician Non Invasive Cardiologist: MARIJA : 1975 Requested By: MERRY ALONSO DNP Order Number: [id number] Reading MD: Freeman Tracy MD Measurements Intervals [place] Rate: 64 P: 30 SD: 217 QRS: 16 QRSD: 90 T: 60 QT: 420 QTc: 434 Interpretive Statements Sinus rhythm Prolonged SD interval Electronically Signed On 01-31-2019 4:31:20 PDT by Freeman Tracy MD CM:EKGRPT:ELECTROCARDIOGRAM REPORT 30 0431 MERRY ALONSO DNP EPIPHANY DRAFT REPORT MERRY ALONSO DNP
--- NOTE | ~2019-01-30 | EKG ---
[place], [place] ELECTROCARDIOGRAM REPORT NAME: ELIUD CHRISTOPHER UNIT #: [id number] ROOM: 518 DOCTOR: HENRY DRAFT REPORT BIRTHDATE: [birth year] [facility] Test Date: 2019-01-30 Test Time: 13:54:26 Pat Name: ELIUD CHRISTOPHER Department: Room: 518 Gender: F Professional Tutor: : 1975 Requested By: MERRY ALONSO DNP Order Number: [id number] Reading MD: Freeman Tracy MD Measurements Intervals [place] Rate: 80 P: 63 SC: 205 QRS: 3 QRSD: 87 T: 67 QT: 383 QTc: 442 Interpretive Statements Sinus rhythm Borderline prolonged SC interval Electronically Signed On 01-31-2019 4:22:00 PDT by Freeman Tracy MD CM:EKGRPT:ELECTROCARDIOGRAM REPORT 1354 0422 MERRY SINGHANY DRAFT REPORT MERRY ALONSO DNP
--- NOTE | ~2019-01-30 | EKG ---
[place], [place] ELECTROCARDIOGRAM REPORT NAME: ELIUD CHRISTOPHER UNIT #: [id number] ROOM: 518 DOCTOR: HENRY DRAFT REPORT BIRTHDATE: [address] [facility] Test Date: 2019-01-30 Test Time: 16:37:10 Pat Name: ELIUD CHRISTOPHER Department: Room: 518 Gender: F Cycle Consultant: MARIJA : 1975 Requested By: MERRY ALONSO DNP Order Number: [id number] Reading MD: Freeman Tracy MD Measurements Intervals [place] Rate: 59 P: 23 NV: 215 QRS: 16 QRSD: 92 T: 75 QT: 438 QTc: 434 Interpretive Statements Sinus bradycardia Prolonged NV interval No previous ECG available for comparison Electronically Signed On 01-31-2019 4:22:10 PDT by Freeman Tracy MD CM:EKGRPT:ELECTROCARDIOGRAM REPORT 1637 0422 MERRY FIGUEROA DRAFT REPORT MERRY ALONSO DNP
--- NOTE | ~2019-01-30 | PR ---
[place], [place] PROGRESS NOTE NAME: ELIUD CHRISTOPHER [facility] #: [id number] UNIT #: [id number] ROOM: 518 DOCTOR: BRIANDA ARAUZ MD BIRTHDATE: [birth year] DOS: 02/01/2019 SUBJECTIVE: The patient is about the same, does not have any new complaints other than she feels slightly shaky this morning. OBJECTIVE: VITAL SIGNS: Blood pressure is 100/52, pulse of 83, respirations 18, temperature 98.5. LUNGS: Clear. HEART: Regular. ABDOMEN: Obese, soft, nontender. EXTREMITIES: Without any edema. ASSESSMENT AND PLAN: 1. Orthostatic hypotension and resultant dizziness from hypovolemia, which is corrected. We will discontinue intravenous fluids. 2. Diarrhea from post-cholecystectomy. The patient has been managed with Questran. 3. Bariatric surgery with significant weight loss, not taking any more of her blood pressure medicines. 4. History of type 2 diabetes mellitus, controlled on diet. 5. Migraine headaches, managed by Topamax, which could be causing some of her hypotension. Advised the patient to discontinue the medications for right now. BRIANDA ARAUZ MD CM:PNTRANS 0722 0810 BRIANDA ARAUZ MD 02/01/19 2227 interface
--- NOTE | ~2019-01-30 | PR ---
[place], [place] PROGRESS NOTE NAME: ELIUD CHRISTOPHER [facility] #: [id number] UNIT #: [id number] ROOM: 518 DOCTOR: BRIANDA ARAUZ MD BIRTHDATE: [birth year] DOS: SUBJECTIVE: The patient was discharged yesterday because she did not have any more complaints. Before discharge when she got up to go to the bathroom, she became quite hypotensive, dizzy and was significantly orthostatic, so discharge was canceled. She was started on Florinef for possibility of neurogenic orthostatic hypotension. This morning, she still has dizziness. OBJECTIVE: VITAL SIGNS: Blood pressure is 92/52, pulse is 79, respirations 16, temperature 99.3, T-max of 100.6. LUNGS: Clear. HEART: Regular. ABDOMEN: Obese, soft, nontender. EXTREMITIES: Without any edema. CT of the head has been done before, which was normal. Labs are all within normal limits. ASSESSMENT AND PLAN: 1. Possible autonomic neuropathy causing dizziness. I have added Florinef, awaiting Cardiology opinion. 2. Chronic hypotension from hypovolemia. Supplementation was given. Kidney functions are normal. She is not having any diarrhea. BRIANDA ARAUZ MD CM:PNTRANS [phone] BRIANDA ARAUZ MD 02/02/19 1058 interface
--- NOTE | ~2019-01-30 | PR ---
[place], [place] PROGRESS NOTE NAME: ELIUD CHRISTOPHER [facility] #: [id number] UNIT #: [id number] ROOM: 518 DOCTOR: SHANI SHELTON MD BIRTHDATE: [birth year] DOS: 01/31/2019 SUBJECTIVE: The patient without diarrhea this morning, dizziness has started improving. OBJECTIVE: GENERAL APPEARANCE: The patient is alert and oriented x 3, in no visible distress. VITAL SIGNS: Blood pressure 110/60, heart rate of 68 beats per minute, breathing 18 times per minute, temperature 98 degrees Fahrenheit. HEENT AND NECK: Exam within normal limits. CARDIOVASCULAR SYSTEM: Heart rate is regular in rate and rhythm. S1 and S2 normally audible. LUNGS: Clear to auscultation. ABDOMEN: Soft, nontender. No obvious organomegaly. Bowel sounds are present. EXTREMITIES: Without significant cyanosis or edema. IMPRESSION: 1. The patient has significant orthostatic hypotension, dizziness and vertigo apparently from hypovolemia from chronic diarrhea, which is being controlled with cholestyramine now and the patient being hydrated with normal saline. 2. Migraine-type headaches, controlled with Topamax, which has been continued. 3. Restless leg syndrome, asymptomatic with ropinirole. 4. Obesity, BMI of 31.9. The patient is working with Dietary. She already had bariatric surgery with 100-pound weight loss. 5. Benign essential hypertension, diet-controlled now. 6. Major depression, recurrent, mild, treated and controlled with citalopram. SHANI SHELTON MD CM:PNTRANS 1234 [id number] SHANI SHELTON MD 02/01/19 0527 interface
--- NOTE | ~2019-01-30 | CON ---
[place], [place] REPORT OF CONSULTATION [id number] UN[facility] #: [id number] ROOM: 518 DOCTOR: FERMIN HOBSON BIRTHDATE: [birth year] DOS: 01/30/2019 CARDIOLOGY CONSULTATION REASON FOR CONSULTATION: Orthostatic hypotension. REQUESTING PHYSICIAN: Dr. Raz Nelson. HISTORY OF PRESENT ILLNESS: The patient is a 43-year-old female, known to Dr. Velasquez from our practice. She has a history of obesity, status post gastric bypass surgery about 1 year ago. She previously had hypertension, diabetes, but since her bypass surgery, has been taken off medical therapy for those conditions. She had an abnormal stress test and a heart catheterization in 2017, catheterization performed by Dr. Viera at which showed normal coronary arteries and normal LV function. She was diagnosed with possible coronary vasospasm. The patient presents to the hospital on this occasion with dizziness. She states for the past 2 months, she has had worsening dizziness that occurs all the time. She describes feeling at times like she is going to pass out. She describes postural changes, worsened dizziness such as getting up from squatting to standing or sitting to standing. However, she also notes, for example, when sitting in a parked car, if the car next to her moved, she became very dizzy as well. This got progressively worse, she called her PCP several times, who ultimately told her to come to the ER for evaluation. She was found to have positive orthostatic vital signs which showed a seated blood pressure of 144/88 with a pulse of 87 and a standing blood pressure of 120/74, pulse of 122. REVIEW OF SYSTEMS: She also complains of significant headaches recently. She also has occasional palpitations. She denies shaye syncope, but has felt presyncopal. She has chronic diarrhea. She states she drinks plenty of fluids and stays hydrated. Otherwise, denies fevers, chills, nausea, vomiting, abdominal pain. Remainder of the review of systems is negative except as described above. PAST MEDICAL HISTORY: Diabetes, hypertension, obesity, depression, fibromyalgia and possible coronary vasospasm. PAST SURGICAL HISTORY: Includes gastric bypass, hysterectomy, gallbladder removal. SOCIAL HISTORY: She is a nonsmoker. Denies alcohol or drug use. FAMILY HISTORY: Father has coronary artery disease and history of stents. Mother has atrial fibrillation and a pacemaker. Apparently, there is a history of sudden cardiac in a paternal uncle as well as paternal grandfather. HOME MEDICATIONS: Include albuterol, calcium, vitamin D2, ferrous sulfate, loratadine, multivitamin, ropinirole, and topiramate. [place], [place] REPORT OF CONSULTATION NAME: ELIUD CHRISTOPHER UNIT #: [id number] ROOM: 518 DOCTOR: FERMIN HOBSON BIRTHDATE: [birth year] ALLERGIES: Listed to MORPHINE, CODEINE, METFORMIN, SITAGLIPTIN. PHYSICAL EXAMINATION: VITAL SIGNS: Afebrile, pulse 104, respirations 16, blood pressure 108/75, saturating 97% on room air. GENERAL APPEARANCE: Middle-aged female, lying in bed, in no distress. HEENT: Shows moist mucous membranes. NECK: Supple. JVP is normal. No carotid bruits. RESPIRATORY: Lungs are clear. CARDIOVASCULAR: Regular rhythm with a normal rate. There are no murmurs. ABDOMEN: Positive bowel sounds. Soft, nontender. There is no organomegaly. EXTREMITIES: Warm, well perfused. There is no edema. SKIN: No lesions or rashes. She has a few tattoos. NEUROLOGICAL: Nonfocal. LABORATORY DATA: Hemoglobin 13.4, platelets 267, potassium 3.5, BUN 17, creatinine 0.75, lactic acid normal. Two sets of troponins are negative. AST and ALT are normal. Total bilirubin slightly elevated at 1.4. Heart catheterization in 2016 at showed normal coronary arteries. Echocardiogram December 2016 showed normal LV function with EF of 65% with normal diastolic parameters. No valvular disease noted. Her pharmacologic stress test in 2017 showed evidence of anterior ischemia, which prompted the stress test. IMPRESSION: 1. Orthostatic hypotension. Differential is somewhat broad, includes dehydration, hypovolemia, possibly medication related, autonomic dysfunction. 2. Dizziness. Some of this sounds related to vertigo, some of this sounds postural. 3. History of coronary vasospasm. 4. History of gastric bypass. 5. Diabetes and hypertension, resolved after bypass surgery. RECOMMENDATIONS: 1. We will continue with some gentle IV fluid hydration overnight. 2. Repeat orthostatic vital signs in the morning. 3. Monitor telemetry for any abnormal heart rhythms. Thank you for the consultation. [place], [place] REPORT OF CONSULTATION NAME: ELIUD CHRISTOPHER UNIT #: [id number] ROOM: 518 DOCTOR: FERMIN HOBSON BIRTHDATE: [birth year] Dr. FERMIN HOBSON MD CM:CONSTR:REPORT OF CONSULTATION 1708 01/31/19 0618 interface
--- NOTE | ~2019-01-30 | PR ---
[place], [place] PROGRESS NOTE [id number] UNIT #: [id number] ROOM: 518 DOCTOR: SHANI SHELTON MD BIRTHDATE: [birth year] DOS: 02/04/2019 SUBJECTIVE: The patient is still dizzy and lightheaded when she gets up despite of being hydrated with normal saline. OBJECTIVE: VITAL SIGNS: Blood pressure 108/63, heart rate of 70 beats per minute, temperature 98.2 degrees Fahrenheit, breathing 16-18 times per minute. GENERAL APPEARANCE: The patient is alert and oriented x 3, in no visible distress. HEENT AND NECK: Exam within normal limits. CARDIOVASCULAR SYSTEM: Heart rate is regular in rate and rhythm. S1 and S2 normally audible. LUNGS: Clear to auscultation. ABDOMEN: Soft, nontender. No obvious organomegaly. Bowel sounds are present. EXTREMITIES: Without significant cyanosis or edema. IMPRESSION: 1. The patient with persistent postural hypotension, dizziness, lightheadedness, and feeling of passing out, has improved with hydration with normal saline. She is on Flomax and I will check an echocardiogram on her today. 2. Chronic diarrhea from cholecystectomy improved with cholestyramine, should improve her hydration status. 3. Migraine type headaches controlled with Topamax. 4. Restless leg syndrome, treated with ropinirole. 5. Major depression, recurrent, mild, treated and controlled with citalopram. 6. Benign essential hypertension, now diet controlled only. Case has been discussed with her insurance, Dr. Cline, who agreed to improve the patient's admission because she is still symptomatic. SHANI SHELTON MD CM:PNTRANS [id number] SHANI SHELTON MD 02/04/192220 interface
--- NOTE | ~2019-01-30 | DS ---
[place], [place] DISCHARGE SUMMARY NAME: ELIUD CHRISTOPHER [facility] #: [id number] UNIT #: [id number] ROOM: 518 DOCTOR: SHANI SHELTON MD BIRTHDATE: [birth year] DOS: 02/05/2019 DISCHARGE DIAGNOSES: 1. Hypotension, dizziness, vertigo, presyncopal. 2. Chronic diarrhea related to remote cholecystectomy. 3. Restless leg syndrome. 4. History of morbid obesity, status post gastric bypass surgery with a BMI of 31.9 now. 5. History of major depression, recurrent, mild. 6. Migraine type headaches. 7. Previous history of benign essential hypertension. HOSPITAL COURSE: The patient presented to the Emergency Department at [facility] with complaints of dizziness and lightheadedness and presyncopal. The patient felt she had difficulty in walking and she felt like she would black out. The patient was found to have postural hypotension and she was hypovolemic. The patient also had chronic diarrhea for many years related to cholecystectomy. I started the patient on cholestyramine dose, which resolved her diarrhea. The patient was hydrated with normal saline and she remained dizzy until now, she is walking independently and is mostly asymptomatic. The patient also started on Florinef and her blood pressures have normalized. The patient is not taking any blood pressure medications anymore for her history of hypertension, apparently because of her significant 100-pound weight loss after gastric bypass surgery. 1. Obesity with a BMI of 31.9. The patient has lost significant amount of weight with diet control and after gastric bypass surgery. The patient says she lost about 100 pounds weight. 2. Benign essential hypertension. Blood pressures are normal now after weight loss diet controlled only. 3. Major depression, recurrent, mild, treated and controlled with citalopram. 4. Restless leg syndrome, treated with ropinirole. 5. Migraine headaches, mostly asymptomatic right now. LABORATORY DATA: Urine cultures are negative. Echocardiogram results were normal. DISCHARGE MANAGEMENT: Florinef 0.2 mg b.i.d., cholestyramine 1 gram t.i.d., Flonase nasal spray 1 inhalation daily, ropinirole 0.5 mg at bedtime, citalopram 40 mg at bedtime. Follow up with Dr. Lechuga in less than a week at the office. [place], [place] DISCHARGE SUMMARY NAME: ELIUD CHRISTOPHER UNIT #: [id number] ROOM: 518 DOCTOR: SHANI SHELTON MD BIRTHDATE: [birth year] SHANI SHELTON MD CM:BALWINDER [id number] SHANI SHELTON MD 02/05/19 1024 interface
--- NOTE | ~2019-01-30 | PR ---
[place], [place] PROGRESS NOTE [id number] UNIT #: [id number] ROOM: 518 DOCTOR: SHANI SHELTON MD BIRTHDATE: [birth year] DOS: 02/03/2019 OBJECTIVE: GENERAL APPEARANCE: The patient is alert and oriented x 3, in no visible distress. VITAL SIGNS: Blood pressure 90/56, heart rate of 65 beats per minute, breathing 20 times per minute, temperature 98.6 degrees Fahrenheit. HEENT AND NECK: Exam within normal limits. CARDIOVASCULAR SYSTEM: Heart rate is regular in rate and rhythm. S1 and S2 normally audible. LUNGS: Clear to auscultation. ABDOMEN: Soft, nontender. No obvious organomegaly. Bowel sounds are present. EXTREMITIES: Without significant cyanosis or edema. IMPRESSION: 1. The patient remains hypotensive, dizzy and feels like she will black out and not sure of herself. She is already on Florinef and all her blood pressure medications have been removed. The patient also has no diarrhea anymore and entrance guard following. 2. Hypovolemia, hypotension, being treated with Florinef and diarrhea has resolved with cholestyramine. The patient is still not steady on her feet and undergoing physical therapy and not very sure of herself. I will restart her on IV fluids. 3. Migraine type headaches have well controlled with Topamax. 4. Restless leg syndrome, treated and controlled with ropinirole. 5. Obesity with BMI of 31.9. The patient is working with Dietary. 6. Benign essential hypertension history, now controlled on diet only. 7. Major depression, recurrent, mild, treated and controlled with citalopram. SHANI SHELTON MD CM:PNTRANS [id number] SHANI SHELTON MD 02/03/19 2342 interface
[2019-01-30 13:13] VITALS: BP 108/75
[~2019-01-30 13:13] MED LIST changes: -CALCIUM 600600 M2 PO; +CALCIUM CARBON600 M4 PO
[2019-01-30 13:43] LABS: BASO % 0.3 % (0.0-1.0); EOS # 0.2 10*3/uL (0.0-0.4); EOS % 2.8 % (1.0-4.0); HEMATOCRIT 39.3 % (37.0-47.0); HEMOGLOBIN 13.4 g/dl (12.0-16.0); LYMPH # 2.3 10*3/uL (1.3-4.4); LYMPH % 31.1 % (27.0-41.0); MEAN CELL VOLUME 89.7 fl (81.0-99.0); MEAN CORPUSCULAR HGB 30.6 pg (27.0-31.0); MEAN CORPUSCULAR HGB CONC 34.1 g/dl (33.0-37.0); MEAN PLATELET VOLUME 9.9 fl (9.6-12.3); MONO # 0.6 10*3/uL (0.1-1.0); MONO % 7.7 % (3.0-9.0); NEUT # 4.3 10*3/uL (2.3-7.9); PLATELET COUNT AUTOMATED 267 10*3/uL (130-400); RED BLOOD COUNT 4.38 10*6/uL (4.10-5.10); RED CELL DISTRI WIDTH 13.1 % (0-14.5); WHITE BLOOD COUNT 7.4 10*3/uL (4.8-10.8)
[2019-01-30 13:48] LABS: BILIRUBIN NEGATIVE (NEGATIVE); BLOOD NEGATIVE (NEGATIVE); CLARITY CLEAR (CLEAR); COLOR YELLOW (YELLOW); GLUCOSE NEGATIVE (NEGATIVE); KETONE NEGATIVE (NEGATIVE); LEUKO ESTERASE NEGATIVE (NEGATIVE); NITRITE NEGATIVE (NEGATIVE); SPECIFIC GRAVITY <= 1.005 (1.005-1.030); UROBILINOGEN 0.2 E.U./dl (0.2-1.0)
[2019-01-30 14:03] LABS: ALBUMIN 3.6 gm/dl (3.1-4.5); ALKALINE PHOSPHATASE 132 U/L (45-117); BUN 17 mg/dl (7-24); CHLORIDE 111 mmol/L (98-107); CREATININE 0.75 mg/dL (0.55-1.02); LIPASE 141 U/L (73-393); POTASSIUM 3.5 mmol/L (3.5-5.1); SGOT/AST 14 IU/L (3-35); SGPT/ALT 18 U/L (12-78); SODIUM 140 mmol/L (136-145); TOTAL PROTEIN 7.2 gm/dL (6.4-8.2)
[2019-01-30 14:03] LABS: BACTERIA 1+
[2019-01-30 14:04] LABS: TROPONIN I < 0.015 ng/ml (<0.045)
[2019-01-30 14:16] LABS: ACT PARTIAL THROMBO TIME 26.5 SECONDS (20.0-32.1)
--- NOTE | 2019-01-30 15:00 | NUR ---
A 43, admitted to 5E, under the services of Dr. CAT DAILY,SHANI Herndon with a diagnosis of DIZZINESS. Chief complaint is DIZZINESS. Patient arrived via stretcher from ER. Monitor applied. Initial assessment completed. Vital signs taken and recorded. DR. ACT DAILY,SHANI Herndon notified of admission to the unit. Orders received. See assessment for past medical history, medications and allergies. Patient and/or family oriented to unit. [facility] visitation policy reviewed. Clothing/patient valuable form completed. GEOVANNA CAMPOS
[2019-01-30 16:00] VITALS: BP 112/75
[2019-01-30] MEDS ORDERED: CELEXA40 MG PO (17:27)
[2019-01-30] MEDS ORDERED: TOPAMAX50 MG PO (17:27)
[2019-01-30] MEDS ORDERED: VITAMIN D310000 UNIT PO (17:28)
--- NOTE | 2019-01-30 17:35 | NUR ---
SPOKE WITH DR BALDERAS REGARDING CONSULT
[2019-01-30 20:00] VITALS: BP 99/70
[2019-01-31] VITALS: BP 102/64
--- NOTE | 2019-01-31 04:31 | NUR ---
24 HR chart check completed.
[2019-01-31 07:08] LABS: BASO % 0.4 % (0.0-1.0); EOS # 0.3 10*3/uL (0.0-0.4); EOS % 3.9 % (1.0-4.0); HEMATOCRIT 36.9 % (37.0-47.0); HEMOGLOBIN 12.3 g/dl (12.0-16.0); LYMPH # 2.8 10*3/uL (1.3-4.4); LYMPH % 37.2 % (27.0-41.0); MEAN CORPUSCULAR HGB CONC 33.3 g/dl (33.0-37.0); MONO # 0.6 10*3/uL (0.1-1.0); MONO % 7.9 % (3.0-9.0); NEUT # 3.9 10*3/uL (2.3-7.9); NEUT % 50.5 % (47.0-73.0); PLATELET COUNT AUTOMATED 255 10*3/uL (130-400); RED CELL DISTRI WIDTH 13.1 % (0-14.5); WHITE BLOOD COUNT 7.6 10*3/uL (4.8-10.8)
[2019-01-31 07:17] LABS: BUN 15 mg/dl (7-24); CHLORIDE 110 mmol/L (98-107); CREATININE 0.56 mg/dL (0.55-1.02); POTASSIUM 3.9 mmol/L (3.5-5.1); SODIUM 140 mmol/L (136-145)
[2019-01-31 08:00] VITALS: BP 110/60
--- NOTE | 2019-01-31 08:14 | NUR ---
PT SITTING UP IN BED, EATING BREAKFAST. NO DISTRESS NOTED. WILL MONITOR
[2019-01-31 12:00] VITALS: BP 107/62
--- NOTE | 2019-01-31 12:24 | NUR ---
Quality Systems Engineer in to talk to patient. Patient states lives at home with her mother and father. There are 17 steps in the home. Physician: Dr. Negin Lechgua Pharmacy: [facility] Home health services: none Patient's level of ADLs: INDEPENDENT Patient has working utilities: yes DME: none Follow-up physician's appointment after d/c: she prefers to make her own follow up appt after discharge Does patient want to access PORTAL?: no Discharge plan discussed with patient. She lives at home with her mother and father. She is independent in her ADLs and ambulation. Discussed home health care services and she denies any home needs at this time. Her mother or father will transport on discharge. SHERRY LEWIS
[2019-01-31 16:00] VITALS: BP 102/57
[2019-01-31 20:00] VITALS: BP 104/61
[2019-02-01] VITALS: BP 100/52; BP 99/55
[2019-02-01] MEDS ORDERED: QUESTRAN LIGHT210 GM PO (07:22)
[2019-02-01] MEDS ORDERED: FLONASE ALLERG9.9 ML NAS (07:23)
[2019-02-01 07:54] LABS: BASO % 0.4 % (0.0-1.0); EOS # 0.2 10*3/uL (0.0-0.4); EOS % 2.6 % (1.0-4.0); HEMATOCRIT 37.2 % (37.0-47.0); HEMOGLOBIN 12.8 g/dl (12.0-16.0); LYMPH # 1.1 10*3/uL (1.3-4.4); LYMPH % 13.9 % (27.0-41.0); MEAN CELL VOLUME 88.2 fl (81.0-99.0); MEAN CORPUSCULAR HGB 30.3 pg (27.0-31.0); MEAN CORPUSCULAR HGB CONC 34.4 g/dl (33.0-37.0); MEAN PLATELET VOLUME 9.6 fl (9.6-12.3); MONO # 0.6 10*3/uL (0.1-1.0); MONO % 7.5 % (3.0-9.0); NEUT # 6.1 10*3/uL (2.3-7.9); NEUT % 75.2 % (47.0-73.0); PLATELET COUNT AUTOMATED 229 10*3/uL (130-400); RED BLOOD COUNT 4.22 10*6/uL (4.10-5.10); WHITE BLOOD COUNT 8.1 10*3/uL (4.8-10.8)
[2019-02-01 08:07] LABS: BUN 12 mg/dl (7-24); CHLORIDE 106 mmol/L (98-107); CREATININE 0.74 mg/dL (0.55-1.02); POTASSIUM 3.7 mmol/L (3.5-5.1); SODIUM 137 mmol/L (136-145)
[2019-02-01 08:52] VITALS: BP 112/70
--- NOTE | 2019-02-01 09:00 | NUR ---
PHYSICAL THERAPY PATIENT SEEN TODAY BY PT TO ASSESS FOR PT AND FOUND TO BE UP (I) IN ROOM FOR ALL FUNCTIONAL MOBILITY AND THUS NO PT NEED AT THIS TIME. THANK YOU FOR REFERRAL KARLEY GAMBINO PT
--- NOTE | 2019-02-01 11:44 | NUR ---
PT C/O DIZZINESS AND FEELING LIKE SHE'S GOING TO PASS OUT AFTER GOING TO THE BATHROOM. PT STATES SHE DOESN'T FEEL LIKE SHE CAN GO HOME. NOTIFIED. ORTHO'S PERFORMED. LAYING BP 122/72. PULSE 113. SITTING BP 122/85. PULSE 115. STANDING BP 111/72. PULSE 130'S. NEW ORDERS RECEIVED. WILL CONTINUE TO MONITOR. PT WILL NOT BE DISCHARGED TODAY.
[2019-02-01 12:00] VITALS: BP 122/72
--- NOTE | 2019-02-01 12:34 | NUR ---
PT GIVEN PO TYLENOL PER PRN ORDER FOR C/O HEADACHE. WILL MONITOR EFFECTIVENESS.
--- NOTE | 2019-02-01 13:30 | NUR ---
TYLENOL RELIEVING HEADACHE PER PT. WILL CONTINUE TO MONITOR.
[2019-02-01 16:00] VITALS: BP 96/64
--- NOTE | 2019-02-01 19:22 | NUR ---
PT MEDICATED WITH PO TYLENOL PER PRN ORDER FOR C/O HEADACHE. WILL MONITOR EFFECTIVENESS.
[2019-02-01 20:00] VITALS: BP 100/58; BP 93/55
--- NOTE | 2019-02-01 22:33 | NUR ---
TYLENOL ADMINISTERED FOR TEMP 100.6. WILL MONITOR FOR EFFECTIVENESS.
[2019-02-02] VITALS: BP 99/55
--- NOTE | 2019-02-02 07:30 | NUR ---
PATIENT RESTING QUIETLY IN BED. PT STILL C/O HEADACHE OFF AND ON WITH DIZZINESS. WILL CONTINUE TO MONITOR.
[2019-02-02 07:34] VITALS: BP 92/52
--- NOTE | 2019-02-02 09:30 | NUR ---
IN TO SEE PATIENT. WAITING FOR CARDIOLOGY TO SEE HER.
[2019-02-02 12:00] VITALS: BP 99/59
--- NOTE | 2019-02-02 12:13 | NUR ---
PATIENT MEDICATED WITH PO TYLENOL PER PRN ORDER FOR C/O HEADACHE. WILL MONITOR EFFECTIVENESS.
--- NOTE | 2019-02-02 13:15 | NUR ---
TYLENOL RELIEVING HEADACHE PER PT. WILL CONTINUE TO MONITOR.
[2019-02-02 16:00] VITALS: BP 92/57
--- NOTE | 2019-02-02 19:57 | NUR ---
24 HR chart check completed.
[2019-02-03] VITALS: BP 84/55; BP 90/56
--- NOTE | 2019-02-03 04:14 | NUR ---
PATIENT RESTING WITH EYES CLOSED. RESPIRATIONS EASY AND UNLABORED.CALL LIGHT WITHIN REACH. WILL MONITOR.
[2019-02-03 08:00] VITALS: BP 98/64
--- NOTE | 2019-02-03 08:00 | NUR ---
RESTING IN BED. DENIES ANY COMPLAINTS. STATES THEN WHEN GETTING UP SHE DOES FEEL DIZZY. BP 98/64
--- NOTE | 2019-02-03 10:55 | NUR ---
Hand Braille Transcriber in to see patient. c/o neck stiffness, headache, and foot cramping. Notified Dr. Nelson. New orders received for Toradol 15 mg now if Cr was normal. Cr 0.74. She denies any home needs. When medically stable she will be discharged to home.
[2019-02-03 12:00] VITALS: BP 100/71
[2019-02-03 16:00] VITALS: BP 105/61
--- NOTE | 2019-02-03 17:09 | NUR ---
IV TO SHELIA REMOVED AFTER STARTING TO LEAK. IV started left forearm with #22 protective cath after 1 attempts. Site prepped with Chloroprep. Sterile dressing applied. Patient tolerated procedure well. IV infusing at 60 cc/hr. JAYDON ESTRELLA
[2019-02-03 20:00] VITALS: BP 101/63
--- NOTE | 2019-02-03 23:27 | NUR ---
PATIENT IS RESTING IN BED WITH EASY AND REGULAR RESPERS ON ROOM AIR. ASSESSMENT IS COMPLETE WITH NO S/S OF DISTRESS NOTED. PATIENT C/O HEADACHE AND PRN TYLENOL PROVIDED. BED IS LOW, LOCKED, AND CALL LIGHT IS WITHIN REACH. WILL MONITOR EFFECT OF MEDICATION.
[2019-02-04] VITALS: BP 92/50
[2019-02-04 08:00] VITALS: BP 108/63
--- NOTE | 2019-02-04 11:00 | NUR ---
Glass Forming Crew Member in to see patient. No new needs or request at this time. She denies any home needs. When medically stable she will be discharged to home.
--- NOTE | 2019-02-04 11:07 | NUR ---
Spoke to Dr. Nelson. New orders received for echo today.
[2019-02-04 12:00] VITALS: BP 100/60
[2019-02-04 16:00] VITALS: BP 112/72
[2019-02-04 20:00] VITALS: BP 105/68
[2019-02-05] VITALS: BP 102/53
--- NOTE | 2019-02-05 02:45 | NUR ---
PO TYLENOL ADMINISTERED PER PRN ORDER FOR C/O HEADACHE. WILL MONITOR EFFECTIVENESS. CALL LIGHT IN REACH.
--- NOTE | 2019-02-05 03:47 | NUR ---
EARLIER MEDICATION APPEARS EFFECTIVE. PT ASLEEP IN BED. NO S/S OF DISTRESS NOTED. WILL MONITOR. CALL LIGHT IN REACH.
[2019-02-05 08:00] VITALS: BP 116/74
[2019-02-05] MEDS ORDERED: FLUDROCORTISON0.1 MG PO (10:00)
[2019-02-05] MEDS ORDERED: QUESTRAN LIGHT4 GM PO (10:00)
--- NOTE | 2019-02-05 11:22 | NUR ---
PATIENT DISCHARGED TO HOME WITH BELONGINGS.
== END 2019-02-05 11:26 | disposition home or self-care (01) | DRG 312 ==
LOC: ED 13:13 → EDHOLD 14:52 → 5E 14:52
PROVIDERS: Internal Medicine; Nurse Practitioner Family; ADMIT Internal Medicine
DX: I95.1 Orthostatic hypotension (principal); F33.0 Major depressive disorder, recurrent, mild; K52.9 Noninfective gastroenteritis and colitis, unspecified; G43.909 Migraine, unspecified, not intractable, without status migrainosus; J30.9 Allergic rhinitis, unspecified; E11.9 Type 2 diabetes mellitus without complications; E66.01 Morbid (severe) obesity due to excess calories; E86.1 Hypovolemia; I10 Essential (primary) hypertension; G25.81 Restless legs syndrome; E66.9 Obesity, unspecified; Z90.49 Acquired absence of other specified parts of digestive tract; Z88.5 Allergy status to narcotic agent; Z98.84 Bariatric surgery status; Z88.8 Allergy status to other drugs, medicaments and biological substances; Z90.710 Acquired absence of both cervix and uterus; Z83.3 Family history of diabetes mellitus; Z68.31 Body mass index [BMI] 31.0-31.9, adult; Z82.49 Family history of ischemic heart disease and other diseases of the circulatory system; Z82.41 Family history of sudden cardiac death

== ENCOUNTER 2019-06-18 09:23 | Emergency (ER) | payer OTHER ==
[~2019-06-18] VITALS: Wt 89.8 kg
[~2019-06-18 09:23] MED LIST changes: +CELEXA40 MG PO; +FLONASE ALLERG9.9 ML NAS; +FLUDROCORTISON0.1 MG PO; +QUESTRAN LIGHT210 GM PO; +QUESTRAN LIGHT4 GM PO; +TOPAMAX50 MG PO; +VITAMIN D310000 UNIT PO
[2019-06-18] MEDS ORDERED: LEVOFLOXACIN500 MG PO (10:46)
[2019-06-18] MEDS ORDERED: ALBUTEROL2.5 MG/0.5 INH (10:46)
== END 2019-06-18 11:15 | disposition home or self-care (01) ==
LOC: ED 09:23
DX: J18.0 Bronchopneumonia, unspecified organism (principal); G43.909 Migraine, unspecified, not intractable, without status migrainosus; E11.9 Type 2 diabetes mellitus without complications; M79.7 Fibromyalgia; Z88.5 Allergy status to narcotic agent; Z88.8 Allergy status to other drugs, medicaments and biological substances; Z79.899 Other long term (current) drug therapy; Z90.710 Acquired absence of both cervix and uterus; Z90.49 Acquired absence of other specified parts of digestive tract; Z87.891 Personal history of nicotine dependence

== ENCOUNTER → 2019-06-24 | Outpatient (CLI) | payer OTHER ==
[~2019-06-24] MED LIST changes: +ALBUTEROL2.5 MG/0.5 INH; +LEVOFLOXACIN500 MG PO
== END | disposition home or self-care (01) ==
LOC: RAD 13:01
DX: J18.9 Pneumonia, unspecified organism (principal)

== ENCOUNTER 2019-12-29 19:15 | Emergency (ER) | payer OTHER ==
[~2019-12-29] VITALS: Ht 170.1 cm; Wt 83.5 kg
== END 2019-12-29 21:22 | disposition home or self-care (01) ==
LOC: ED 19:15
DX: S66.911A Strain of unspecified muscle, fascia and tendon at wrist and hand level, right hand, initial encounter (principal); G43.909 Migraine, unspecified, not intractable, without status migrainosus; E11.9 Type 2 diabetes mellitus without complications; Z88.5 Allergy status to narcotic agent; Z88.8 Allergy status to other drugs, medicaments and biological substances; Z79.899 Other long term (current) drug therapy; X58.XXXA Exposure to other specified factors, initial encounter; Y93.89 Activity, other specified; Y92.89 Other specified places as the place of occurrence of the external cause; Y99.8 Other external cause status

== ENCOUNTER 2020-02-09 17:41 | Observation (INO) | payer OTHER ==
[~2020-02-09] VITALS: Ht 170.1 cm; Wt 100.8 kg
[2020-02-09 17:46] VITALS: BP 124/85
--- NOTE | 2020-02-09 18:11 | NUR ---
ORTHOSTATIC VITAL SIGNS DONE. VITAL SIGNS DON'T REVEAL POSITIVE ORTHOSTATIC, HOWEVER HER HEART RATE DID INCREASE SLIGHTLY WITH EACH POSITION CHANGE. PATIENT DID HAVE DIZZINESS WITH POSITION CHANGE AND FELT LIKE SHE WAS OFF BALANCE WHEN GOING FROM SITTING TO STANDING.
[2020-02-09 18:37] VITALS: BP 112/70
[2020-02-09 18:43] LABS: BASO % 0.2 % (0.0-1.0); EOS # 0.4 10*3/uL (0.0-0.4); EOS % 4.4 % (1.0-4.0); HEMATOCRIT 40.1 % (37.0-47.0); LYMPH # 3.4 10*3/uL (1.3-4.4); LYMPH % 42.4 % (27.0-41.0); MEAN CELL VOLUME 89.9 fl (81.0-99.0); MEAN CORPUSCULAR HGB 29.1 pg (27.0-31.0); MEAN CORPUSCULAR HGB CONC 32.4 g/dl (33.0-37.0); MEAN PLATELET VOLUME 10.2 fl (9.6-12.3); MONO # 0.5 10*3/uL (0.1-1.0); MONO % 6.2 % (3.0-9.0); NEUT # 3.7 10*3/uL (2.3-7.9); NEUT % 46.6 % (47.0-73.0); PLATELET COUNT AUTOMATED 263 10*3/uL (130-400); RED BLOOD COUNT 4.46 10*6/uL (4.10-5.10); RED CELL DISTRI WIDTH 12.1 % (0-14.5)
[2020-02-09 18:58] LABS: ALBUMIN 3.7 gm/dl (3.1-4.5); ALKALINE PHOSPHATASE 122 U/L (45-117); BUN 11 mg/dl (7-24); CHLORIDE 108 mmol/L (98-107); CREATININE 0.77 mg/dL (0.55-1.02); SGOT/AST 11 IU/L (3-35); SGPT/ALT 19 U/L (12-78); SODIUM 140 mmol/L (136-145); TOTAL PROTEIN 7.2 gm/dL (6.4-8.2)
[2020-02-09 19:02] LABS: TROPONIN I < 0.015 ng/ml (<0.045)
--- NOTE | 2020-02-09 20:23 | NUR ---
1ST LITER OF FLUID COMPLETED. 2ND LITER ORDERED. PATIENT REPORTS STILL UNABLE TO URINATE BUT WILL RING CALL KHANNA TO BE UNCONNECTED TO AMBULATE TO THE BATHROOM.
[2020-02-09 20:25] VITALS: BP 107/72
[2020-02-09 22:04] VITALS: BP 113/73
[2020-02-09 22:44] VITALS: BP 120/74
[2020-02-09 23:19] LABS: BILIRUBIN NEGATIVE; BLOOD NEGATIVE (NEGATIVE); CLARITY CLEAR (CLEAR); COLOR YELLOW (YELLOW); GLUCOSE NEGATIVE; KETONE NEGATIVE; LEUKO ESTERASE NEGATIVE (NEGATIVE); NITRITE NEGATIVE (NEGATIVE)
[2020-02-09 23:20] LABS: RBC 0-2 rbc/hpf (0-2); WBC 0-2 wbc/hpf (0-5)
[2020-02-09 23:21] LABS: BACTERIA TRACE; MUCOUS 1+
--- NOTE | 2020-02-09 23:58 | NUR ---
ORTHOS PERFORMED AT THIS TIME. NALLELY Craig AWARE. PER PATIENT NEEDED BEDSIDE COMMODE DUE TO DIARRHEA. PER PATIENT AFTER SHE DRINKS FLUIDS SHE USUALLY HAS DIARRHEA, NALLELY Craig AWARE.
[2020-02-10 00:54] VITALS: BP 106/66
--- NOTE | 2020-02-10 00:54 | NUR ---
PT ASSISTED UP TO BSC FOR DIARRHEA STOOLS.SHE IS BEING ADMITTED.VOICES UNDERSTANDING.SNACK PROVIDED PER REQUEST--LEFTY MIRELES
[2020-02-10 01:28] VITALS: BP 116/64
--- NOTE | 2020-02-10 01:28 | NUR ---
A 44, admitted to , under the services of Dr. CAT DAILY,SHANI Herndon with a diagnosis of DIZZINESS, ORTHOSTATIC HYPOTENSION, DEHYDRATION. Chief complaint is DIZZINESS X 1 WK. CHRONIC DIARRHEA. Patient arrived via bed from ER. Monitor applied. Initial assessment completed. Vital signs taken and recorded. DR. CAT DAILY,SHANI Herndon notified of admission to the unit. Orders received. See assessment for past medical history, medications and allergies. Patient and/or family oriented to unit. [facility] visitation policy reviewed. Clothing/patient valuable form completed. ALEX DIAZ
[2020-02-10] MEDS ORDERED: ROPINIROLE HYDRO1 MG PO (01:39)
[2020-02-10] MEDS ORDERED: GOOD NEIGHBOR L10 MG PO (01:39)
[2020-02-10] MEDS ORDERED: AMITRIPTYLINE25 MG PO (01:40)
[2020-02-10] MEDS ORDERED: MULTIVITAMINS1 EAC6 PO (01:41)
[2020-02-10] MEDS ORDERED: FEROSUL325 MG PO (01:41)
[2020-02-10] MEDS ORDERED: OYSTER SHELL 51 EACH PO (01:42)
--- NOTE | 2020-02-10 02:00 | NUR ---
DR SHELTON CONTACTED, ADMISSION ORDERS RECEIVED
--- NOTE | 2020-02-10 06:00 | NUR ---
SLEPT SINCE ARRIVING ON FLOOR WITH NO DISTRESS NOTED. RESPIRATIONS EASY. IV FLUIDS MAINTAINED. CALL LIGHT WITHIN REACH. NO VOICED COMPLAINTS THIS SHIFT
[2020-02-10 08:00] VITALS: BP 124/62
--- NOTE | 2020-02-10 10:11 | NUR ---
IN TO SEE PATIENT.
[2020-02-10 12:00] VITALS: BP 123/82
--- NOTE | 2020-02-10 12:00 | NUR ---
PATIENT RESTING QUIETLY IN BED. NO DISTRESS NOTED. PT DENIES ANY PAIN/DISCOMFORT AT THIS TIME. WILL CONTINUE TO MONITOR. IVF MAINTAINED. PT AWARE OF C-DIFF SPECIMEN ORDER. CALL LIGHT WITHIN REACH.
[2020-02-10 16:00] VITALS: BP 108/67
--- NOTE | 2020-02-10 16:00 | NUR ---
PATIENT CONTINUES TO REST QUIETLY. NO DISTRESS NOTED. RESPIRATIONS EASY, REGULAR. WILL CONTINUE TO MONITOR. NO VOICED COMPLAINTS. IVF MAINTAINED. CALL LIGHT WITHIN REACH.
--- NOTE | 2020-02-10 19:52 | NUR ---
24 HR chart check completed.
[2020-02-10 20:00] VITALS: BP 124/73
--- NOTE | 2020-02-10 21:00 | NUR ---
RESTING IN BED WITH NO ACUTE DISTRESS NOTED. RESPIRATIONS EASY. LUNGS DIMINISHED, CLEAR. PULSE OX 98% RA. ABD SOFT WITH NORMO BS, CLAIMS DIARRHEA X 4 AND IS AWARE OF NEED FOR SAMPLE. IV FLUIDS INFUSING PER ORDER. CALL LIGHT WITHIN REACH. NO VOICED COMPLAINTS
[2020-02-11] VITALS: BP 113/71
--- NOTE | 2020-02-11 | NUR ---
SLEEPING. NO DISTRESS NOTED. RESPIRATIONS EASY. VSS. IV FLUIDS MAINTAINED. CALL LIGHT WITHIN REACH
--- NOTE | 2020-02-11 06:00 | NUR ---
SLEPT THROUGHOUT NIGHT WITH NO DISTRESS NOTED. RESPIRATIONS EASY. IV FLUIDS MAINTAINED. CALL LIGHT WITHIN REACH. NO VOICED COMPLAINTS THIS SHIFT
[2020-02-11 06:22] LABS: BASO % 0.3 % (0.0-1.0); EOS # 0.4 10*3/uL (0.0-0.4); EOS % 4.9 % (1.0-4.0); HEMATOCRIT 35.6 % (37.0-47.0); LYMPH # 3.2 10*3/uL (1.3-4.4); LYMPH % 40.3 % (27.0-41.0); MEAN CELL VOLUME 89.2 fl (81.0-99.0); MEAN CORPUSCULAR HGB 29.1 pg (27.0-31.0); MEAN CORPUSCULAR HGB CONC 32.6 g/dl (33.0-37.0); MEAN PLATELET VOLUME 10.6 fl (9.6-12.3); MONO # 0.5 10*3/uL (0.1-1.0); MONO % 6.8 % (3.0-9.0); NEUT # 3.8 10*3/uL (2.3-7.9); NEUT % 47.6 % (47.0-73.0); PLATELET COUNT AUTOMATED 228 10*3/uL (130-400); RED BLOOD COUNT 3.99 10*6/uL (4.10-5.10); WHITE BLOOD COUNT 7.9 10*3/uL (4.8-10.8)
[2020-02-11 06:36] LABS: BUN 9 mg/dl (7-24); CHLORIDE 109 mmol/L (98-107); SODIUM 140 mmol/L (136-145)
[2020-02-11 08:00] VITALS: BP 134/82
--- NOTE | 2020-02-11 08:00 | NUR ---
Patient resting quietly with no c/o discomfort. Respirations easy and regular. Vital signs stable. No overt distress. JULIANNE SANTIAGO
--- NOTE | 2020-02-11 09:00 | NUR ---
Certified Technician in to talk to patient. Patient states lives at home with her parents. There are 17 steps in the home. Physician: Dr. Negin Lechuga Pharmacy: [facility] health services: none Patient's level of ADLs: INDEPENDENT Patient has working utilities: yes DME: none Follow-up physician's appointment after d/c: she prefers to make her own follow up appt after discharge Does patient want to access PORTAL?: no Discharge plan discussed with patient. She lives at home with her mother and father. She is independent in her ADLs and ambulation. Discussed home health care services and she declines. CM will continue to follow for any discharge planning needs. She states her father will provide transportation on discharge. SHERRY LEWIS
[2020-02-11 12:00] VITALS: BP 118/70
--- NOTE | 2020-02-11 13:47 | NUR ---
PT SLEEPING. WILL MONITOR.
--- NOTE | 2020-02-11 14:28 | NUR ---
EXCEDRIN 2 TABS GIVEN PER PRN ORDER FOR C/O MIGRAINE. WILL MONITOR EFFECTIVENESS.
--- NOTE | 2020-02-11 15:28 | NUR ---
EXCEDRIN EFFECTIVE PER PT. WILL CONTINUE TO MONITOR.
[2020-02-11 16:00] VITALS: BP 119/66
[2020-02-11 20:00] VITALS: BP 121/90
--- NOTE | 2020-02-11 20:00 | NUR ---
PT SEEN AND ASSESSED. PT STATES SHE IS STILL EXPERIENCING DIARHHEA HOWEVER IT HAS SLOWED DOWN. PT DENIES ANY OTHER C/O AT THIS TIME.
[2020-02-12] VITALS: BP 132/77
--- NOTE | 2020-02-12 00:53 | NUR ---
24 HR chart check completed.
[2020-02-12 07:26] LABS: CHLORIDE 109 mmol/L (98-107); POTASSIUM 4.1 mmol/L (3.5-5.1); SODIUM 142 mmol/L (136-145)
[2020-02-12 07:33] LABS: BUN 9 mg/dl (7-24); CREATININE 0.62 mg/dL (0.55-1.02)
[2020-02-12 08:00] VITALS: BP 120/72; BP 130/86
--- NOTE | 2020-02-12 09:00 | NUR ---
CM in to see patient. No new needs or request at this time. Discussed home health care services and she declines. CM will continue to follow for any discharge planning needs. When medically stable she will be discharged to home.
[2020-02-12] MEDS ORDERED: COLESTID1 GM PO (10:14)
--- NOTE | 2020-02-12 11:04 | NUR ---
Discharge instructions reviewed with patient/family. Patient receptive and verbalizes understanding. Follow-up care arranged. Written instructions given to patient/family. [place]OCK DISCONTINUED. ANESTHESIOLOGY MEDICAL DOCTOR REMOVED. PATIENT AMBULATORY OFF FLOOR AND PICKED UP BY MOTHER. ELIAN PALMA
== END 2020-02-12 11:04 | disposition home or self-care (01) ==
LOC: ED 17:41 → 4E 02-10 00:04 → EDHOLD 02-10 00:04 → 4E 02-10 00:33
PROVIDERS: Nurse Practitioner; ADMIT Internal Medicine; ATTEND Internal Medicine
DX: R19.7 Diarrhea, unspecified (principal); E86.0 Dehydration; E86.1 Hypovolemia; G25.81 Restless legs syndrome; I10 Essential (primary) hypertension; F32.9 Major depressive disorder, single episode, unspecified; E66.01 Morbid (severe) obesity due to excess calories; Z68.34 Body mass index [BMI] 34.0-34.9, adult; G43.909 Migraine, unspecified, not intractable, without status migrainosus

== ENCOUNTER → 2020-05-19 | Outpatient (CLI) | payer OTHER ==
[~2020-05-19] MED LIST changes: +AMITRIPTYLINE25 MG PO; +COLESTID1 GM PO; +GOOD NEIGHBOR L10 MG PO; +MULTIVITAMINS1 EAC6 PO; +OYSTER SHELL 51 EACH PO; +ROPINIROLE HYDRO1 MG PO
== END | disposition home or self-care (01) ==
LOC: MRI 10:00
PROVIDERS: ATTEND Internal Medicine
DX: R51.9 Headache, unspecified (principal); R42 Dizziness and giddiness

== ENCOUNTER 2020-06-04 15:43 | Emergency (ER) | payer OTHER ==
[~2020-06-04] VITALS: Wt 91.6 kg
[2020-06-04 16:13] LABS: BASO % 0.2 % (0.0-1.0); EOS % 0.4 % (1.0-4.0); HEMATOCRIT 42.3 % (37.0-47.0); LYMPH # 1.6 10*3/uL (1.3-4.4); LYMPH % 33.5 % (27.0-41.0); MEAN CELL VOLUME 86.2 fl (81.0-99.0); MEAN CORPUSCULAR HGB 28.7 pg (27.0-31.0); MEAN CORPUSCULAR HGB CONC 33.3 g/dl (33.0-37.0); MEAN PLATELET VOLUME 9.9 fl (9.6-12.3); MONO # 0.4 10*3/uL (0.1-1.0); MONO % 9.1 % (3.0-9.0); NEUT # 2.6 10*3/uL (2.3-7.9); NEUT % 56.4 % (47.0-73.0); PLATELET COUNT AUTOMATED 183 10*3/uL (130-400); RED BLOOD COUNT 4.91 10*6/uL (4.10-5.10); RED CELL DISTRI WIDTH 12.3 % (0-14.5); WHITE BLOOD COUNT 4.6 10*3/uL (4.8-10.8)
[2020-06-04 16:25] LABS: BUN 9 mg/dl (7-24); CHLORIDE 103 mmol/L (98-107); CREATININE 0.78 mg/dL (0.55-1.02); POTASSIUM 3.8 mmol/L (3.5-5.1); SODIUM 135 mmol/L (136-145)
== END 2020-06-04 17:40 | disposition home or self-care (01) ==
LOC: ED 15:43
PROVIDERS: Internal Medicine
DX: R06.02 Shortness of breath (principal); Z20.828 Contact with and (suspected) exposure to other viral communicable diseases; F17.200 Nicotine dependence, unspecified, uncomplicated; Z88.6 Allergy status to analgesic agent; Z88.8 Allergy status to other drugs, medicaments and biological substances; Z79.899 Other long term (current) drug therapy

== ENCOUNTER → 2020-07-22 | Outpatient (CLI) | payer OTHER ==
[~2020-07-22] MED LIST changes: +PERCOCET 5-3251 EACH PO
[2020-07-22 14:48] LABS: HEMATOCRIT 41.8 % (37.0-47.0); MEAN CELL VOLUME 90.5 fl (81.0-99.0); MEAN CORPUSCULAR HGB 30.1 pg (27.0-31.0); MEAN CORPUSCULAR HGB CONC 33.3 g/dl (33.0-37.0); MEAN PLATELET VOLUME 10.3 fl (9.6-12.3); RED BLOOD COUNT 4.62 10*6/uL (4.10-5.10); RED CELL DISTRI WIDTH 13.1 % (0-14.5); WHITE BLOOD COUNT 8.7 10*3/uL (4.8-10.8)
[2020-07-22 15:05] LABS: ALBUMIN 3.7 gm/dl (3.1-4.5); ALKALINE PHOSPHATASE 122 U/L (45-117); BUN 7 mg/dl (7-24); CHLORIDE 106 mmol/L (98-107); CREATININE 0.86 mg/dL (0.55-1.02); FREE T4 0.89 ng/dl (0.76-1.46); POTASSIUM 3.6 mmol/L (3.5-5.1); SGOT/AST 13 IU/L (3-35); SGPT/ALT 20 U/L (12-78); SODIUM 137 mmol/L (136-145); TOTAL PROTEIN 7.7 gm/dL (6.4-8.2)
[2020-07-22 16:36] LABS: VITAMIN D, 25-HYDROXY 18.6 ng/mL (30-100)
[2020-07-23 07:06] LABS: HEP B CORE AB, IGM Negative (Negative); HEPATITIS B SURFACE AG Negative (Negative); HEPATITIS C VIRUS ANTIBODY <0.1 s/co (0.0-0.9)
[2020-07-23 08:08] LABS: RHEUMATOID ARTHRITIS FACTOR <10.0 IU/mL (0.0-13.9)
== END | disposition home or self-care (01) ==
LOC: LAB 14:29
PROVIDERS: ATTEND Family Medicine
DX: G62.9 Polyneuropathy, unspecified (principal); R51.9 Headache, unspecified; R53.83 Other fatigue; E55.9 Vitamin D deficiency, unspecified; M19.90 Unspecified osteoarthritis, unspecified site; R55 Syncope and collapse; R53.1 Weakness

== ENCOUNTER 2020-08-30 06:36 | Emergency (ER) | payer OTHER ==
[~2020-08-30] VITALS: Ht 170.1 cm; Wt 99.8 kg
[~2020-08-30 06:36] MED LIST changes: -PERCOCET 5-3251 EACH PO
[2020-08-30 08:16] LABS: BASO % 0.3 % (0.0-1.0); EOS # 0.3 10*3/uL (0.0-0.4); EOS % 2.9 % (1.0-4.0); HEMATOCRIT 45.4 % (37.0-47.0); LYMPH % 31.5 % (27.0-41.0); MEAN CELL VOLUME 91.3 fl (81.0-99.0); MEAN CORPUSCULAR HGB 29.8 pg (27.0-31.0); MEAN CORPUSCULAR HGB CONC 32.6 g/dl (33.0-37.0); MEAN PLATELET VOLUME 10.5 fl (9.6-12.3); MONO # 0.6 10*3/uL (0.1-1.0); MONO % 5.9 % (3.0-9.0); NEUT # 5.7 10*3/uL (2.3-7.9); NEUT % 59.1 % (47.0-73.0); PLATELET COUNT AUTOMATED 301 10*3/uL (130-400); RED BLOOD COUNT 4.97 10*6/uL (4.10-5.10); RED CELL DISTRI WIDTH 12.7 % (0-14.5); WHITE BLOOD COUNT 9.6 10*3/uL (4.8-10.8)
[2020-08-30 08:18] LABS: BILIRUBIN Negative (Negative); BLOOD Negative (Negative); CLARITY Clear (Clear); COLOR Dark Yellow (Yellow); GLUCOSE Negative (Negative); KETONE Trace (Negative); LEUKO ESTERASE Trace (Negative); NITRITE Negative (Negative); PH 5.5 (4.5-8.0); SPECIFIC GRAVITY 1.025 (1.001-1.030)
[2020-08-30 08:35] LABS: ALBUMIN 4.3 gm/dl (3.1-4.5); ALKALINE PHOSPHATASE 138 U/L (45-117); BUN 10 mg/dl (7-24); CHLORIDE 103 mmol/L (98-107); CREATININE 0.96 mg/dL (0.55-1.02); LIPASE 102 U/L (73-393); POTASSIUM 4.1 mmol/L (3.5-5.1); SGOT/AST 16 IU/L (3-35); SGPT/ALT 20 U/L (12-78); SODIUM 135 mmol/L (136-145); TOTAL PROTEIN 8.5 gm/dL (6.4-8.2)
[2020-08-30 08:37] LABS: BACTERIA 1+; HYALINE CAST 0-2; MUCOUS 1+; RBC 0-2 rbc/hpf (0-2); WBC 0-2 wbc/hpf (0-5)
[2020-08-30 08:38] LABS: BETA-HCG, QUANT < 1.0 mIU/mL (1-3)
[2020-08-30] MEDS ORDERED: CYCLOBENZAPRINE10 MG PO (09:34)
[2020-08-30] MEDS ORDERED: PERCOCET 5-3251 EACH PO (09:34)
== END 2020-08-30 09:46 | disposition home or self-care (01) ==
LOC: ED 06:36
PROVIDERS: Emergency Medicine
DX: S39.012A Strain of muscle, fascia and tendon of lower back, initial encounter (principal); Z88.8 Allergy status to other drugs, medicaments and biological substances; Z88.5 Allergy status to narcotic agent; Z88.4 Allergy status to anesthetic agent; Z79.899 Other long term (current) drug therapy; Z90.711 Acquired absence of uterus with remaining cervical stump; Z98.84 Bariatric surgery status; Z90.49 Acquired absence of other specified parts of digestive tract; X58.XXXA Exposure to other specified factors, initial encounter; Y93.89 Activity, other specified; Y92.89 Other specified places as the place of occurrence of the external cause; Y99.8 Other external cause status

== ENCOUNTER 2020-11-21 21:23 | Inpatient (IN) | payer OTHER ==
[~2020-11-21] VITALS: Ht 170.2 cm; Wt 99.8 kg
[~2020-11-21 21:23] MED LIST changes: +PERCOCET 5-3251 EACH PO
[2020-11-21 21:26] VITALS: BP 135/94
[2020-11-21 21:42] LABS: BASO % 0.3 % (0.0-1.0); EOS # 0.4 10*3/uL (0.0-0.4); HEMATOCRIT 40.3 % (37.0-47.0); LYMPH # 3.7 10*3/uL (1.3-4.4); LYMPH % 41.6 % (27.0-41.0); MEAN CORPUSCULAR HGB 29.2 pg (27.0-31.0); MEAN CORPUSCULAR HGB CONC 33.5 g/dl (33.0-37.0); MEAN PLATELET VOLUME 10.6 fl (9.6-12.3); MONO # 0.6 10*3/uL (0.1-1.0); MONO % 6.7 % (3.0-9.0); NEUT # 4.2 10*3/uL (2.3-7.9); NEUT % 47.3 % (47.0-73.0); PLATELET COUNT AUTOMATED 259 10*3/uL (130-400); RED BLOOD COUNT 4.63 10*6/uL (4.10-5.10); RED CELL DISTRI WIDTH 12.6 % (0-14.5)
[2020-11-21 22:01] LABS: ALKALINE PHOSPHATASE 122 U/L (45-117); BUN 10 mg/dl (7-24); CHLORIDE 107 mmol/L (98-107); CREATININE 0.72 mg/dL (0.55-1.02); POTASSIUM 3.7 mmol/L (3.5-5.1); SGOT/AST 12 IU/L (3-35); SGPT/ALT 16 U/L (12-78); SODIUM 135 mmol/L (136-145); TOTAL PROTEIN 7.8 gm/dL (6.4-8.2)
[2020-11-21 22:10] LABS: TROPONIN I < 0.015 ng/ml (<0.045)
[2020-11-22 01:47] VITALS: BP 128/89
[2020-11-22 02:00] VITALS: BP 128/79
[2020-11-22] MEDS ORDERED: BUSPIRONE HCL7.5 MG PO (02:22)
[2020-11-22] MEDS ORDERED: OXYBUTYNIN5 MG PO (02:23)
[2020-11-22] MEDS ORDERED: TRAZODONE50 MG PO (02:24)
[2020-11-22] MEDS ORDERED: METFORMIN XR500 MG PO (02:24)
[2020-11-22 08:00] VITALS: BP 114/75
[2020-11-22 12:00] VITALS: BP 112/70
== END 2020-11-22 15:59 | disposition home or self-care (01) | DRG 313 ==
LOC: ED 21:23 → EDHOLD 11-22 01:21 → 4E 11-22 01:51
PROVIDERS: Emergency Medicine; ADMIT Internal Medicine; ATTEND Internal Medicine
PROC: 4A02XM4 Measurement of Cardiac Total Activity, External Approach (ICD-10-PCS; principal; 2020-11-22)
PROC: 3E073KZ Introduction of Other Diagnostic Substance into Coronary Artery, Percutaneous Approach (ICD-10-PCS; 2020-11-22)
DX: R07.9 Chest pain, unspecified (principal); F33.0 Major depressive disorder, recurrent, mild; E66.01 Morbid (severe) obesity due to excess calories; F51.04 Psychophysiologic insomnia; G25.81 Restless legs syndrome; R32 Unspecified urinary incontinence; F41.1 Generalized anxiety disorder; Z88.5 Allergy status to narcotic agent; Z88.6 Allergy status to analgesic agent; Z88.8 Allergy status to other drugs, medicaments and biological substances; Z90.710 Acquired absence of both cervix and uterus; Z68.34 Body mass index [BMI] 34.0-34.9, adult

== ENCOUNTER → 2021-04-27 | Outpatient (CLI) | payer OTHER ==
[~2021-04-27] MED LIST changes: +BUSPIRONE HCL7.5 MG PO; +METFORMIN XR500 MG PO; +OXYBUTYNIN5 MG PO; +TRAZODONE50 MG PO
== END | disposition home or self-care (01) ==
LOC: MAMMO 08:27 → US 09:00
PROVIDERS: ATTEND Internal Medicine
DX: Z12.31 Encounter for screening mammogram for malignant neoplasm of breast (principal); R10.2 Pelvic and perineal pain

== ENCOUNTER 2021-07-06 09:15 | Emergency (ER) | payer OTHER ==
[~2021-07-06] VITALS: Ht 170.1 cm; Wt 87.1 kg
[2021-07-06 10:16] LABS: BILIRUBIN Negative (Negative); BLOOD Trace-Lysed (Negative); CLARITY Clear (Clear); COLOR Yellow (Yellow); GLUCOSE Negative (Negative); KETONE Negative (Negative); LEUKO ESTERASE 1+ (Negative); NITRITE Negative (Negative); SPECIFIC GRAVITY 1.015 (1.001-1.030)
[2021-07-06 10:30] LABS: BACTERIA 1+; MUCOUS 1+; WBC 41-50 wbc/hpf (0-5)
[2021-07-06 10:42] LABS: BASO % 0.3 % (0.0-1.0); EOS # 0.2 10*3/uL (0.0-0.4); EOS % 2.9 % (1.0-4.0); HEMATOCRIT 40.2 % (37.0-47.0); LYMPH # 2.5 10*3/uL (1.3-4.4); LYMPH % 33.3 % (27.0-41.0); MEAN CELL VOLUME 86.6 fl (81.0-99.0); MEAN CORPUSCULAR HGB 29.1 pg (27.0-31.0); MEAN CORPUSCULAR HGB CONC 33.6 g/dl (33.0-37.0); MEAN PLATELET VOLUME 9.9 fl (9.6-12.3); MONO # 0.5 10*3/uL (0.1-1.0); MONO % 6.2 % (3.0-9.0); NEUT # 4.3 10*3/uL (2.3-7.9); NEUT % 57.2 % (47.0-73.0); PLATELET COUNT AUTOMATED 263 10*3/uL (130-400); RED BLOOD COUNT 4.64 10*6/uL (4.10-5.10); RED CELL DISTRI WIDTH 12.3 % (0-14.5); WHITE BLOOD COUNT 7.5 10*3/uL (4.8-10.8)
[2021-07-06 10:55] LABS: BUN 8 mg/dl (7-24); CHLORIDE 105 mmol/L (98-107); CREATININE 0.66 mg/dL (0.55-1.02); POTASSIUM 3.9 mmol/L (3.5-5.1); SODIUM 138 mmol/L (136-145)
[2021-07-06] MEDS ORDERED: VOLTAREN ARTHRI20 GM T (11:32)
[2021-07-06] MEDS ORDERED: TYLENOL325 M1 PO (11:32)
[2021-07-06] MEDS ORDERED: PHENERGAN25 M3 PO (11:32)
[2021-07-06] MEDS ORDERED: CYCLOBENZAPRINE10 MG PO (11:32)
== END 2021-07-06 11:40 | disposition home or self-care (01) ==
LOC: ED 09:15
PROVIDERS: Emergency Medicine
DX: R10.9 Unspecified abdominal pain (principal); R35.0 Frequency of micturition; R39.15 Urgency of urination; R11.10 Vomiting, unspecified; R63.0 Anorexia; Z88.6 Allergy status to analgesic agent; Z88.8 Allergy status to other drugs, medicaments and biological substances; Z79.899 Other long term (current) drug therapy; E11.9 Type 2 diabetes mellitus without complications; Z90.710 Acquired absence of both cervix and uterus; Z90.49 Acquired absence of other specified parts of digestive tract; Z98.890 Other specified postprocedural states

== ENCOUNTER 2021-08-09 08:11 | Emergency (ER) | payer OTHER ==
[~2021-08-09] VITALS: Ht 170.1 cm; Wt 108.9 kg
[~2021-08-09 08:11] MED LIST changes: +PHENERGAN25 M3 PO; +TYLENOL325 M1 PO; +VOLTAREN ARTHRI20 GM T
[2021-08-09 08:37] LABS: BASO % 0.1 % (0.0-1.0); EOS # 0.3 10*3/uL (0.0-0.4); EOS % 2.5 % (1.0-4.0); HEMATOCRIT 39.3 % (37.0-47.0); LYMPH # 2.3 10*3/uL (1.3-4.4); LYMPH % 20.4 % (27.0-41.0); MEAN CELL VOLUME 87.5 fl (81.0-99.0); MEAN CORPUSCULAR HGB 29.2 pg (27.0-31.0); MEAN CORPUSCULAR HGB CONC 33.3 g/dl (33.0-37.0); MONO # 0.9 10*3/uL (0.1-1.0); MONO % 7.8 % (3.0-9.0); NEUT # 7.7 10*3/uL (2.3-7.9); NEUT % 68.9 % (47.0-73.0); PLATELET COUNT AUTOMATED 239 10*3/uL (130-400); RED BLOOD COUNT 4.49 10*6/uL (4.10-5.10); RED CELL DISTRI WIDTH 12.7 % (0-14.5); WHITE BLOOD COUNT 11.2 10*3/uL (4.8-10.8)
[2021-08-09 08:50] LABS: ACT PARTIAL THROMBO TIME 27.9 SECONDS (20.0-32.1)
[2021-08-09 08:54] LABS: ALKALINE PHOSPHATASE 144 U/L (45-117); BUN 6 mg/dl (7-24); CHLORIDE 105 mmol/L (98-107); CREATININE 0.66 mg/dL (0.55-1.02); POTASSIUM 3.6 mmol/L (3.5-5.1); SGOT/AST 15 IU/L (3-35); SGPT/ALT 17 U/L (12-78); SODIUM 140 mmol/L (136-145); TOTAL PROTEIN 7.6 gm/dL (6.4-8.2)
[2021-08-09] MEDS ORDERED: FLONASE ALLERG9.9 ML NAS (11:56)
== END 2021-08-09 12:13 | disposition home or self-care (01) ==
LOC: ED 08:11
PROVIDERS: Emergency Medicine
DX: R06.02 Shortness of breath (principal); J30.9 Allergic rhinitis, unspecified; E11.9 Type 2 diabetes mellitus without complications; I10 Essential (primary) hypertension; Z88.6 Allergy status to analgesic agent; Z88.8 Allergy status to other drugs, medicaments and biological substances; Z79.899 Other long term (current) drug therapy; Z90.710 Acquired absence of both cervix and uterus; Z90.89 Acquired absence of other organs

== ENCOUNTER 2021-10-21 00:02 | Emergency (ER) | payer OTHER ==
[~2021-10-21] VITALS: Ht 170.1 cm; Wt 94.3 kg
[2021-10-21] MEDS ORDERED: AUGMENTIN 875-875 MG PO (02:31)
== END 2021-10-21 02:44 | disposition home or self-care (01) ==
LOC: ED 00:02
DX: J01.90 Acute sinusitis, unspecified (principal); Z88.6 Allergy status to analgesic agent; Z88.8 Allergy status to other drugs, medicaments and biological substances; Z79.899 Other long term (current) drug therapy; Z90.710 Acquired absence of both cervix and uterus; Z90.49 Acquired absence of other specified parts of digestive tract; Z98.890 Other specified postprocedural states

== ENCOUNTER → 2021-11-29 | Outpatient (CLI) | payer OTHER ==
[~2021-11-29] MED LIST changes: +AUGMENTIN 875-875 MG PO
[2021-11-29 11:55] LABS: TOTAL PROTEIN 7.7 gm/dL (6.4-8.2)
== END | disposition home or self-care (01) ==
LOC: LAB 11:24
PROVIDERS: ATTEND Internal Medicine
DX: R10.9 Unspecified abdominal pain (principal)

== ENCOUNTER → 2022-01-24 | Outpatient (CLI) | payer OTHER ==
[2022-01-24 11:38] LABS: BASO % 0.3 % (0.0-1.0); EOS # 0.2 10*3/uL (0.0-0.4); EOS % 2.1 % (1.0-4.0); LYMPH # 2.4 10*3/uL (1.3-4.4); LYMPH % 29.9 % (27.0-41.0); MEAN CELL VOLUME 89.2 fl (81.0-99.0); MEAN CORPUSCULAR HGB 29.7 pg (27.0-31.0); MEAN CORPUSCULAR HGB CONC 33.3 g/dl (33.0-37.0); MEAN PLATELET VOLUME 10.2 fl (9.6-12.3); MONO # 0.5 10*3/uL (0.1-1.0); MONO % 6.8 % (3.0-9.0); NEUT # 4.8 10*3/uL (2.3-7.9); NEUT % 60.8 % (47.0-73.0); PLATELET COUNT AUTOMATED 274 10*3/uL (130-400); RED BLOOD COUNT 4.71 10*6/uL (4.10-5.10); RED CELL DISTRI WIDTH 13.1 % (0-14.5)
[2022-01-24 11:59] LABS: CHLORIDE 107 mmol/L (98-107); POTASSIUM 3.7 mmol/L (3.5-5.1); SGOT/AST 12 IU/L (3-35); SGPT/ALT 16 U/L (12-78); SODIUM 137 mmol/L (136-145)
[2022-01-24 12:04] LABS: FREE T4 0.9 ng/dl (0.76-1.46)
[2022-01-24 12:05] LABS: ALKALINE PHOSPHATASE 136 U/L (45-117); BUN 7 mg/dl (7-24); CREATININE 0.59 mg/dL (0.55-1.02); PREALBUMIN 16 mg/dl (20-40); TOTAL PROTEIN 7.4 gm/dL (6.4-8.2); TRIGLYCERIDES 103 mg/dl (<150)
[2022-01-24 12:09] LABS: THYROID STIM HORMONE (HS) 3.13 uIU/ml (0.358-4.75)
[2022-01-24 12:11] LABS: FERRITIN 20.4 ng/mL (10.0-291.0); VITAMIN D, 25-HYDROXY 23.8 ng/mL (30-100)
[2022-01-26 06:07] LABS: ZINC, PLASMA 80 ug/dL (44-115)
== END | disposition home or self-care (01) ==
LOC: LAB 10:50
PROVIDERS: ATTEND Internal Medicine
DX: Z13.0 Encounter for screening for diseases of the blood and blood-forming organs and certain disorders involving the immune mechanism (principal); Z13.1 Encounter for screening for diabetes mellitus; Z13.21 Encounter for screening for nutritional disorder; Z13.220 Encounter for screening for lipoid disorders; Z13.228 Encounter for screening for other metabolic disorders; Z13.29 Encounter for screening for other suspected endocrine disorder; Z13.6 Encounter for screening for cardiovascular disorders; Z13.89 Encounter for screening for other disorder; Z13.9 Encounter for screening, unspecified; R73.09 Other abnormal glucose; I10 Essential (primary) hypertension; E11.9 Type 2 diabetes mellitus without complications; D51.9 Vitamin B12 deficiency anemia, unspecified; Z23 Encounter for immunization; Z13.820 Encounter for screening for osteoporosis

== ENCOUNTER 2022-02-18 18:05 | Emergency (ER) | payer OTHER ==
[~2022-02-18] VITALS: Ht 170.1 cm; Wt 91.6 kg
== END 2022-02-18 19:52 | disposition home or self-care (01) ==
LOC: ED 18:05
DX: S80.01XA Contusion of right knee, initial encounter (principal); E11.9 Type 2 diabetes mellitus without complications; Z88.8 Allergy status to other drugs, medicaments and biological substances; Z88.6 Allergy status to analgesic agent; Z79.899 Other long term (current) drug therapy; Z90.710 Acquired absence of both cervix and uterus; Z90.49 Acquired absence of other specified parts of digestive tract; W01.0XXA Fall on same level from slipping, tripping and stumbling without subsequent striking against object, initial encounter; Y93.89 Activity, other specified; Y92.89 Other specified places as the place of occurrence of the external cause; Y99.8 Other external cause status

== ENCOUNTER 2022-05-24 20:17 | Emergency (ER) | payer OTHER ==
[~2022-05-24] VITALS: Ht 170.1 cm; Wt 95.3 kg
[2022-05-24] MEDS ORDERED: AMOXICILLIN500 M2 PO (22:13)
[2022-05-24] MEDS ORDERED: PREDNISONE20 M1 PO (22:13)
== END 2022-05-24 22:16 | disposition home or self-care (01) ==
LOC: ED 20:17
DX: J20.9 Acute bronchitis, unspecified (principal); Z20.822 Contact with and (suspected) exposure to COVID-19; J01.90 Acute sinusitis, unspecified; Z88.8 Allergy status to other drugs, medicaments and biological substances; Z79.899 Other long term (current) drug therapy; Z90.710 Acquired absence of both cervix and uterus; Z90.49 Acquired absence of other specified parts of digestive tract

== ENCOUNTER 2022-07-10 10:34 | Emergency (ER) | payer OTHER ==
[~2022-07-10 10:34] MED LIST changes: +AMOXICILLIN500 M2 PO; +PREDNISONE20 M1 PO
[2022-07-10 11:18] LABS: BASO % 0.3 % (0.0-1.0); EOS # 0.2 10*3/uL (0.0-0.4); EOS % 2.1 % (1.0-4.0); HEMATOCRIT 44.1 % (37.0-47.0); LYMPH % 25.9 % (27.0-41.0); MEAN CELL VOLUME 88.7 fl (81.0-99.0); MEAN CORPUSCULAR HGB CONC 32.7 g/dl (33.0-37.0); MONO # 0.4 10*3/uL (0.1-1.0); MONO % 4.8 % (3.0-9.0); NEUT % 66.6 % (47.0-73.0); PLATELET COUNT AUTOMATED 306 10*3/uL (130-400); RED BLOOD COUNT 4.97 10*6/uL (4.10-5.10); RED CELL DISTRI WIDTH 12.4 % (0-14.5); WHITE BLOOD COUNT 7.5 10*3/uL (4.8-10.8)
[2022-07-10 11:20] LABS: BILIRUBIN Negative (Negative); BLOOD Negative (Negative); CLARITY Clear (Clear); COLOR Yellow (Yellow); GLUCOSE Negative (Negative); KETONE Negative (Negative); LEUKO ESTERASE Negative (Negative); NITRITE Negative (Negative); SPECIFIC GRAVITY 1.015 (1.001-1.030)
[2022-07-10 11:37] LABS: BACTERIA TRACE; EPITHELIAL CELLS 0-2; MUCOUS 1+; WBC 0-2 wbc/hpf (0-5)
[2022-07-10 11:46] LABS: ALKALINE PHOSPHATASE 132 U/L (46-116); BUN 9 mg/dl (9-23); CHLORIDE 101 mmol/L (98-107); POTASSIUM 3.8 mmol/L (3.4-5.1); SGPT/ALT 11 U/L (10-49); TOTAL PROTEIN 7.6 gm/dL (6.0-8.0)
[2022-07-10] MEDS ORDERED: CIPRO500 MG PO (12:27)
== END 2022-07-10 12:40 | disposition home or self-care (01) ==
LOC: ED 10:34
PROVIDERS: Nurse Practitioner Family
DX: N39.0 Urinary tract infection, site not specified (principal); E11.9 Type 2 diabetes mellitus without complications; G43.909 Migraine, unspecified, not intractable, without status migrainosus; M79.7 Fibromyalgia; Z88.8 Allergy status to other drugs, medicaments and biological substances; Z90.710 Acquired absence of both cervix and uterus; Z98.890 Other specified postprocedural states

== ENCOUNTER 2022-09-05 11:02 | Emergency (ER) | payer BC, OTHER ==
[~2022-09-05] VITALS: Ht 170.1 cm; Wt 100.7 kg
[~2022-09-05 11:02] MED LIST changes: +CIPRO500 MG PO
[2022-09-05 12:08] LABS: BASO % 0.4 % (0.0-1.0); EOS # 0.2 10*3/uL (0.0-0.4); EOS % 2.2 % (1.0-4.0); HEMATOCRIT 38.4 % (37.0-47.0); LYMPH # 2.5 10*3/uL (1.3-4.4); LYMPH % 29.5 % (27.0-41.0); MEAN CELL VOLUME 86.3 fl (81.0-99.0); MEAN CORPUSCULAR HGB 28.8 pg (27.0-31.0); MEAN CORPUSCULAR HGB CONC 33.3 g/dl (33.0-37.0); MEAN PLATELET VOLUME 9.8 fl (9.6-12.3); MONO # 0.6 10*3/uL (0.1-1.0); NEUT # 5.1 10*3/uL (2.3-7.9); NEUT % 60.7 % (47.0-73.0); PLATELET COUNT AUTOMATED 243 10*3/uL (130-400); RED BLOOD COUNT 4.45 10*6/uL (4.10-5.10); RED CELL DISTRI WIDTH 12.5 % (0-14.5); WHITE BLOOD COUNT 8.5 10*3/uL (4.8-10.8)
[2022-09-05 12:25] LABS: ALKALINE PHOSPHATASE 108 U/L (46-116); BUN < 5 mg/dl (9-23); CHLORIDE 102 mmol/L (98-107); POTASSIUM 3.9 mmol/L (3.4-5.1); SGPT/ALT 12 U/L (10-49); TOTAL PROTEIN 6.5 gm/dL (6.0-8.0)
[2022-09-05] MEDS ORDERED: ONDANSETRON4 MG SL (16:54)
== END 2022-09-05 18:00 | disposition home or self-care (01) ==
LOC: ED 11:02
PROVIDERS: Internal Medicine
DX: R07.9 Chest pain, unspecified (principal); K21.9 Gastro-esophageal reflux disease without esophagitis; Z88.8 Allergy status to other drugs, medicaments and biological substances; Z88.6 Allergy status to analgesic agent; Z79.899 Other long term (current) drug therapy; Z90.710 Acquired absence of both cervix and uterus; Z90.49 Acquired absence of other specified parts of digestive tract; Z98.890 Other specified postprocedural states

== ENCOUNTER 2022-10-05 17:07 | Emergency (ER) | payer BC, OTHER ==
[~2022-10-05] VITALS: Ht 171.7 cm; Wt 100.7 kg
[~2022-10-05 17:07] MED LIST changes: +ONDANSETRON4 MG SL
[2022-10-05 17:54] LABS: BASO % 0.3 % (0.0-1.0); EOS # 0.2 10*3/uL (0.0-0.4); EOS % 2.1 % (1.0-4.0); HEMATOCRIT 42.4 % (37.0-47.0); LYMPH # 2.7 10*3/uL (1.3-4.4); LYMPH % 27.2 % (27.0-41.0); MEAN CELL VOLUME 87.4 fl (81.0-99.0); MEAN CORPUSCULAR HGB 28.5 pg (27.0-31.0); MEAN CORPUSCULAR HGB CONC 32.5 g/dl (33.0-37.0); MEAN PLATELET VOLUME 9.4 fl (9.6-12.3); MONO # 0.6 10*3/uL (0.1-1.0); MONO % 5.8 % (3.0-9.0); NEUT # 6.3 10*3/uL (2.3-7.9); NEUT % 64.4 % (47.0-73.0); PLATELET COUNT AUTOMATED 282 10*3/uL (130-400); RED BLOOD COUNT 4.85 10*6/uL (4.10-5.10); RED CELL DISTRI WIDTH 12.6 % (0-14.5); WHITE BLOOD COUNT 9.8 10*3/uL (4.8-10.8)
[2022-10-05 18:28] LABS: ALKALINE PHOSPHATASE 121 U/L (46-116); BUN 6 mg/dl (9-23); CHLORIDE 103 mmol/L (98-107); POTASSIUM 3.7 mmol/L (3.4-5.1); SGPT/ALT 11 U/L (10-49); TOTAL PROTEIN 7.3 gm/dL (6.0-8.0)
[2022-10-05] MEDS ORDERED: ONDANSETRON4 MG SL (18:51)
[2022-10-05] MEDS ORDERED: IMITREX50 MG PO (18:51)
== END 2022-10-05 21:21 | disposition home or self-care (01) ==
LOC: ED 17:07
PROVIDERS: Student in an Organized Health Care Education/Training Program
DX: G43.909 Migraine, unspecified, not intractable, without status migrainosus (principal); R11.10 Vomiting, unspecified; E11.9 Type 2 diabetes mellitus without complications; Z79.4 Long term (current) use of insulin; M79.7 Fibromyalgia; Z88.5 Allergy status to narcotic agent; Z88.8 Allergy status to other drugs, medicaments and biological substances; Z90.710 Acquired absence of both cervix and uterus; Z98.890 Other specified postprocedural states

== ENCOUNTER 2022-11-28 21:53 | Emergency (ER) | payer BC, OTHER ==
[~2022-11-28] VITALS: Ht 170.1 cm; Wt 105.2 kg
[~2022-11-28 21:53] MED LIST changes: +IMITREX50 MG PO
[2022-11-28 22:29] LABS: BASO % 0.1 % (0.0-1.0); EOS # 0.2 10*3/uL (0.0-0.4); EOS % 2.6 % (1.0-4.0); HEMATOCRIT 38.3 % (37.0-47.0); LYMPH % 37.5 % (27.0-41.0); MEAN CELL VOLUME 86.5 fl (81.0-99.0); MEAN CORPUSCULAR HGB 28.4 pg (27.0-31.0); MEAN CORPUSCULAR HGB CONC 32.9 g/dl (33.0-37.0); MONO # 0.4 10*3/uL (0.1-1.0); MONO % 5.5 % (3.0-9.0); NEUT # 4.3 10*3/uL (2.3-7.9); PLATELET COUNT AUTOMATED 247 10*3/uL (130-400); RED BLOOD COUNT 4.43 10*6/uL (4.10-5.10); RED CELL DISTRI WIDTH 12.3 % (0-14.5)
[2022-11-28 22:53] LABS: ALKALINE PHOSPHATASE 121 U/L (46-116); BUN 9 mg/dl (9-23); CHLORIDE 105 mmol/L (98-107); POTASSIUM 3.8 mmol/L (3.4-5.1); SGPT/ALT 8 U/L (10-49); TOTAL PROTEIN 6.6 gm/dL (6.0-8.0)
[2022-11-28] MEDS ORDERED: BUPROPION HYDR100 M3 PO (22:55)
[2022-11-28] MEDS ORDERED: METOPROLOL SUCC25 M2 PO (22:56)
[2022-11-28] MEDS ORDERED: PANTOPRAZOLE SO40 MG PO (22:57)
== END 2022-11-29 00:18 | disposition home or self-care (01) ==
LOC: ED 21:53
PROVIDERS: Physician Assistant Medical
DX: I82.401 Acute embolism and thrombosis of unspecified deep veins of right lower extremity (principal); Z88.8 Allergy status to other drugs, medicaments and biological substances; Z88.5 Allergy status to narcotic agent; Z79.899 Other long term (current) drug therapy; Z90.711 Acquired absence of uterus with remaining cervical stump; Z98.890 Other specified postprocedural states

== ENCOUNTER → 2022-11-29 | Outpatient (CLI) | payer BC, OTHER ==
[~2022-11-29] MED LIST changes: +BUPROPION HYDR100 M3 PO; +METOPROLOL SUCC25 M2 PO; +PANTOPRAZOLE SO40 MG PO
== END | disposition home or self-care (01) ==
LOC: US 09:56
PROVIDERS: ATTEND Internal Medicine
DX: M79.604 Pain in right leg (principal)

== ENCOUNTER → 2023-02-20 | Outpatient (CLI) | payer BC, OTHER | END | disposition home or self-care (01) | LOC: CARD 14:00 | PROVIDERS: ATTEND Internal Medicine | DX: I10 Essential (primary) hypertension (principal) ==

== ENCOUNTER 2023-03-06 08:33 | Emergency (ER) | payer BC, OTHER ==
[~2023-03-06] VITALS: Ht 170.1 cm; Wt 101.2 kg
[2023-03-06 09:44] LABS: BASO % 0.4 % (0.0-1.0); EOS # 0.2 10*3/uL (0.0-0.4); EOS % 2.4 % (1.0-4.0); HEMATOCRIT 40.3 % (37.0-47.0); LYMPH # 2.4 10*3/uL (1.3-4.4); LYMPH % 29.5 % (27.0-41.0); MEAN CELL VOLUME 85.9 fl (81.0-99.0); MEAN CORPUSCULAR HGB 27.7 pg (27.0-31.0); MEAN CORPUSCULAR HGB CONC 32.3 g/dl (33.0-37.0); MONO # 0.5 10*3/uL (0.1-1.0); NEUT # 4.9 10*3/uL (2.3-7.9); NEUT % 61.6 % (47.0-73.0); PLATELET COUNT AUTOMATED 268 10*3/uL (130-400); RED BLOOD COUNT 4.69 10*6/uL (4.10-5.10); RED CELL DISTRI WIDTH 13.2 % (0-14.5)
[2023-03-06 09:56] LABS: ACT PARTIAL THROMBO TIME 27.9 SECONDS (20.0-32.1)
[2023-03-06 10:20] LABS: ALKALINE PHOSPHATASE 111 U/L (46-116); BETA-HCG, QUANT < 3.0 mIU/mL (3-10); BUN 8 mg/dl (9-23); CHLORIDE 104 mmol/L (98-107); LIPASE 35 U/L (12-53); POTASSIUM 3.9 mmol/L (3.4-5.1); SGPT/ALT 7 U/L (10-49); TOTAL PROTEIN 6.6 gm/dL (6.0-8.0)
[2023-03-06 16:23] LABS: BILIRUBIN Negative (Negative); BLOOD Negative (Negative); CLARITY Clear (Clear); COLOR Yellow (Yellow); GLUCOSE Negative (Negative); KETONE Negative (Negative); LEUKO ESTERASE Negative (Negative); NITRITE Negative (Negative); PH 6.5 (4.5-8.0); SPECIFIC GRAVITY <= 1.005 (1.001-1.030)
[2023-03-06 16:33] LABS: BACTERIA TRACE; RBC 0-2 rbc/hpf (0-2); WBC 0-2 wbc/hpf (0-5)
== END 2023-03-06 16:48 | disposition home or self-care (01) ==
LOC: ED 08:33
PROVIDERS: Emergency Medicine
DX: R07.89 Other chest pain (principal); E11.9 Type 2 diabetes mellitus without complications; G43.909 Migraine, unspecified, not intractable, without status migrainosus; M79.7 Fibromyalgia; Z79.4 Long term (current) use of insulin; Z88.5 Allergy status to narcotic agent; Z88.8 Allergy status to other drugs, medicaments and biological substances; Z90.710 Acquired absence of both cervix and uterus; Z98.890 Other specified postprocedural states

== ENCOUNTER 2023-09-11 12:48 | Emergency (ER) | payer BC, OTHER ==
[~2023-09-11] VITALS: Ht 170.1 cm; Wt 113.9 kg
[2023-09-11] MEDS ORDERED: BUMETANIDE 2.5 MG/10 ML VIAL IM ONE (15:00)
[2023-09-11 15:11] LABS: BASO % 0.2 % (0.0-1.0); EOS # 0.3 10*3/uL (0.0-0.4); EOS % 2.9 % (1.0-4.0); LYMPH # 2.4 10*3/uL (1.3-4.4); LYMPH % 27.5 % (27.0-41.0); MEAN CELL VOLUME 86.7 fl (81.0-99.0); MEAN CORPUSCULAR HGB 27.3 pg (27.0-31.0); MEAN CORPUSCULAR HGB CONC 31.5 g/dl (33.0-37.0); MEAN PLATELET VOLUME 10.1 fl (9.6-12.3); MONO # 0.5 10*3/uL (0.1-1.0); MONO % 5.7 % (3.0-9.0); NEUT # 5.4 10*3/uL (2.3-7.9); NEUT % 63.5 % (47.0-73.0); PLATELET COUNT AUTOMATED 257 10*3/uL (130-400); RED CELL DISTRI WIDTH 13.2 % (0-14.5); WHITE BLOOD COUNT 8.6 10*3/uL (4.8-10.8)
[2023-09-11 15:33] LABS: ALKALINE PHOSPHATASE 113 U/L (46-116); BUN 8 mg/dl (9-23); CHLORIDE 103 mmol/L (98-107); POTASSIUM 3.6 mmol/L (3.4-5.1); SGPT/ALT 11 U/L (5-49); TOTAL PROTEIN 7.2 gm/dL (6.0-8.0)
== END 2023-09-11 17:24 | disposition home or self-care (01) ==
LOC: ED 12:48
PROVIDERS: Physician Assistant Medical
DX: R60.0 Localized edema (principal); E11.9 Type 2 diabetes mellitus without complications; Z79.4 Long term (current) use of insulin; G43.909 Migraine, unspecified, not intractable, without status migrainosus; M79.7 Fibromyalgia; Z88.5 Allergy status to narcotic agent; Z88.8 Allergy status to other drugs, medicaments and biological substances; Z90.710 Acquired absence of both cervix and uterus; Z90.49 Acquired absence of other specified parts of digestive tract; Z98.890 Other specified postprocedural states

== ENCOUNTER → 2024-12-27 | Outpatient (CLI) | payer BC ==
[~2024-12-27] MED LIST changes: +IOHEXOL 300 MG/ML 100 ML VIAL IV ONE; +IOHEXOL 300 MG/ML 100 ML VIAL ONE
== END ==
LOC: LAB 07:04 → CT 08:00
PROVIDERS: ATTEND Registered Nurse
DX: R74.8 Abnormal levels of other serum enzymes (principal); M51.369 Other intervertebral disc degeneration, lumbar region without mention of lumbar back pain or lower extremity pain; M25.78 Osteophyte, vertebrae

== ENCOUNTER 2025-01-24 15:17 | Emergency (ER) | payer BC ==
[~2025-01-24 15:17] MED LIST changes: -IOHEXOL 300 MG/ML 100 ML VIAL IV ONE; -IOHEXOL 300 MG/ML 100 ML VIAL ONE
[2025-01-24] MEDS ORDERED: SODIUM CHLORIDE 0.9% 1,000 ML IV ONE (15:20)
[2025-01-24] MEDS ORDERED: fentaNYL CITRATE/PF 50 MCG/ML SYRINGE IV ONE ×2 (15:20→17:25)
[2025-01-24 15:43] LABS: BASO # 0.0 10*3/uL (0.0-0.1); BASO % 0.3 % (0.0-1.0); EOS # 0.1 10*3/uL (0.0-0.4); EOS % 1.0 % (1.0-4.0); MEAN CELL VOLUME 86.4 fl (81.0-99.0); MEAN CORPUSCULAR HGB 26.8 pg (27.0-31.0); MEAN PLATELET VOLUME 10.2 fl (9.6-12.3); MONO # 0.7 10*3/uL (0.1-1.0); MONO % 8.3 % (3.0-9.0); NEUT # 5.8 10*3/uL (2.3-7.9); NEUT % 68.0 % (47.0-73.0); NUCLEATED RED BLOOD CELL 0.0 % (0.0-0.0); NUCLEATED RED BLOOD CELL 0.0 10*3/uL (0.0-0.0); PLATELET COUNT AUTOMATED 226 10*3/uL (130-400); RED CELL DISTRI WIDTH 14.1 % (0-14.5)
[2025-01-24 16:02] LABS: BUN 8 mg/dl (9-23)
== END 2025-01-24 20:51 | disposition home or self-care (01) ==
LOC: ED 15:17
PROVIDERS: Emergency Medicine
DX: M25.561 Pain in right knee (principal); R07.2 Precordial pain; E11.9 Type 2 diabetes mellitus without complications; Z79.899 Other long term (current) drug therapy; Z88.5 Allergy status to narcotic agent; Z88.6 Allergy status to analgesic agent; Z88.8 Allergy status to other drugs, medicaments and biological substances; Z98.890 Other specified postprocedural states; W18.39XA Other fall on same level, initial encounter; Y93.89 Activity, other specified; Y92.89 Other specified places as the place of occurrence of the external cause; Y99.8 Other external cause status